=== PATIENT | female | born 1955 | race Caucasian/White ===

== ENCOUNTER 2016-12-26 21:37 | Emergency (ER) | payer MEDICAID ==
[~2016-12-26] VITALS: Ht 167.6 cm; Wt 63.2 kg
[2016-12-26 21:52] VITALS: BP 182/92
== END 2016-12-27 | disposition home or self-care (01) ==
LOC: ED 22:16
DX: I10 Essential (primary) hypertension (principal)
CPT/HCPCS: 99283

== ENCOUNTER 2019-07-13 14:14 | Inpatient (IN) | payer MEDICAID, OTHER ==
[~2019-07-13] VITALS: Ht 167.6 cm; Wt 57.7 kg
--- NOTE | 2019-07-13 14:59 | NUR ---
REPORT FROM ANA BRAND.
[2019-07-13] MEDS ORDERED: PHARMACOKINETIC CONSULTATION MC ONE (15:00)
[2019-07-13] MEDS ORDERED: AMPICILLIN/SULBACTAM 3 GM in SODIUM CHLORIDE 0.9% 100 ML IV ONE (15:00)
[2019-07-13] MEDS ORDERED: VANCOMYCIN 1,400 MG in SODIUM CHLORIDE 0.9% 250 ML IV ONE (15:00)
[2019-07-13] MEDS ORDERED: SODIUM CHLORIDE FLUSH 10ML SYR IVF ONE (15:00)
[2019-07-13] MEDS ORDERED: VANCOMYCIN PER PHARMACY MC PRN ×2 (15:00→16:00)
[2019-07-13 15:17] LABS: BASOPHILS # (AUTO) 0.02 x10^3/uL (0-0.1); BASOPHILS % (AUTO) 0 % (0-1); EOSINOPHILS # (AUTO) 0.04 x10^3/uL (0-0.4); EOSINOPHILS % (AUTO) 1 % (1-7); LYMPHOCYTES # (AUTO) 0.66 x10^3/uL (1-3.4); LYMPHOCYTES % (AUTO) 10 % (22-44); MD NO; MEAN CORPUSCULAR HEMOGLOBIN 27.5 pg (27.0-34.8); MEAN CORPUSCULAR HGB CONC 32.3 g/dL (32.4-35.8); MEAN CORPUSCULAR VOLUME 84.9 fL (80-100); MEAN PLATELET VOLUME 8.5 fL (7.4-10.4); MONOCYTES # (AUTO) 0.85 x10^3/uL (0.2-0.8); MONOCYTES % (AUTO) 13 % (2-9); NEUTROPHILS % (AUTO) 75 % (42-75); PLATELET COUNT 274 x10^3/uL (130-400); RED BLOOD COUNT 4.12 x10^6/uL (3.82-5.3); RED CELL DISTRIBUTION WIDTH 14.6 % (9.6-15.2)
[2019-07-13 15:23] LABS: ALBUMIN 2.7 g/dL (3.4-5.0); ANION GAP 8 mmol/L (5-15); CALCIUM 8.1 mg/dL (8.5-10.1); CHLORIDE 98 mmol/L (98-107); CREATININE 0.96 mg/dL (0.55-1.02)
[2019-07-13] MEDS ORDERED: SODIUM CHLORIDE 0.9% 1,000ML IVBOLUS ONE (15:30)
--- NOTE | 2019-07-13 15:39 | NUR ---
FLUIDS INFUSING, VANCO INFUSING. BLOOD CULTURES DRAWN. PT HAS NO FURTHER NEEDS AT THIS TIME
[2019-07-13] MEDS: SODIUM CHLORIDE 0.9% 1,000 ML IV SCH ×2 (15:59→21:24)
[2019-07-13] MEDS ORDERED: DOCUSATE 100 MG CAPSULE PO PRN (16:00)
[2019-07-13] MEDS ORDERED: PERMETHRIN CRM 5%, 60GM TP ONE (16:00)
[2019-07-13] MEDS ORDERED: ONDANSETRON ODT 4 MG PO PRN (16:00)
[2019-07-13] MEDS ORDERED: POTASSIUM CHLORIDE 20 MEQ TAB.ER.PRT PO ONE (16:00)
[2019-07-13] MEDS ORDERED: KETOROLAC 30 MG/1 ML IV PRN (16:00)
[2019-07-13] MEDS ORDERED: SODIUM CHLORIDE FLUSH 10ML SYR IVF PRN (16:00)
[2019-07-13] MEDS ORDERED: HYDROcodone/APAP 5/325 TABLET PO PRN (16:00)
[2019-07-13] MEDS ORDERED: morphine SULFATE 10 MG/ML, 1ML IVPush PRN (16:00)
[2019-07-13] MEDS ORDERED: ACETAMINOPHEN 325 MG TABLET PO PRN (16:00)
[2019-07-13] MEDS ORDERED: ONDANSETRON 2MG/ML, 2ML IVPush PRN (16:00)
--- NOTE | 2019-07-13 16:03 | NUR ---
HOSPITALIST AT BEDSIDE.
[2019-07-13] MEDS ORDERED: ENOXAPARIN 40 MG/0.4 ML ONE (16:20)
[2019-07-13] MEDS ORDERED: POTASSIUM CHLORIDE 20 MEQ TAB.ER.PRT ONE (16:20)
[2019-07-13] MEDS: ENOXAPARIN 40 MG/0.4 ML SQ SCH (16:28)
[2019-07-13] MEDS ORDERED: PHARMACOKINETIC MONITORING MC PRN (16:30)
--- NOTE | 2019-07-13 16:34 | NUR ---
MEDS PER MAR. PLACED ON 2 LNC. AWAITING BED FOR ADMIT, AWARE AND AGREES.
--- NOTE | 2019-07-13 16:40 | NUR ---
PT COUGHING, DENIES SMOKING HX, RA SAT 86 WHEN SLEEPING, GARRETT MOONEY MADE AWARE CXR ORDERED.
[2019-07-13] MEDS ORDERED: GUAIFENESIN 200 MG TABLET PO PRN (17:00)
--- NOTE | 2019-07-13 17:05 | NUR ---
REPORT TO SELENA BRAND.
[2019-07-13 20:45] VITALS: BP 136/74
[2019-07-13] MEDS: AMPICILLIN/SULBACTAM 3 GM in SODIUM CHLORIDE 0.9% 100 ML IV SCH ×2 (21:24→22:00)
[2019-07-14 00:31] VITALS: BP 134/70
[2019-07-14] MEDS: AMPICILLIN/SULBACTAM 3 GM in SODIUM CHLORIDE 0.9% 100 ML IV SCH ×4 (04:10→21:57)
[2019-07-14 06:07] LABS: ANION GAP 3 mmol/L (5-15); BASOPHILS # (AUTO) 0.03 x10^3/uL (0-0.1); BASOPHILS % (AUTO) 1 % (0-1); CALCIUM 7.7 mg/dL (8.5-10.1); CHLORIDE 106 mmol/L (98-107); EOSINOPHILS # (AUTO) 0.04 x10^3/uL (0-0.4); EOSINOPHILS % (AUTO) 1 % (1-7); LYMPHOCYTES # (AUTO) 0.93 x10^3/uL (1-3.4); LYMPHOCYTES % (AUTO) 19 % (22-44); MD NO; MEAN CORPUSCULAR HEMOGLOBIN 27.7 pg (27.0-34.8); MEAN CORPUSCULAR HGB CONC 32.4 g/dL (32.4-35.8); MEAN CORPUSCULAR VOLUME 85.3 fL (80-100); MEAN PLATELET VOLUME 8.3 fL (7.4-10.4); MONOCYTES # (AUTO) 0.68 x10^3/uL (0.2-0.8); MONOCYTES % (AUTO) 14 % (2-9); NEUTROPHILS # (AUTO) 3.17 x10^3/uL (1.8-6.8); NEUTROPHILS % (AUTO) 65 % (42-75); PLATELET COUNT 223 x10^3/uL (130-400); RED BLOOD COUNT 3.48 x10^6/uL (3.82-5.3); RED CELL DISTRIBUTION WIDTH 14.3 % (9.6-15.2)
[2019-07-14 06:10] LABS: CREATININE 0.63 mg/dL (0.55-1.02)
[2019-07-14 07:05] VITALS: BP 119/67
[2019-07-14 12:21] VITALS: BP 123/68
[2019-07-14] MEDS ORDERED: GADOTERATE 7.5 MMOL/15 ML SYR ONE (14:45)
[2019-07-14] MEDS: VANCOMYCIN 1,300 MG in SODIUM CHLORIDE 0.9% 250 ML IV SCH (15:13)
[2019-07-14] MEDS: SODIUM CHLORIDE 0.9% 1,000 ML IV SCH (16:49)
[2019-07-14] MEDS: ENOXAPARIN 40 MG/0.4 ML SQ SCH (16:49)
[2019-07-14 19:27] VITALS: BP 130/65
[2019-07-15 02:23] VITALS: BP 150/81
[2019-07-15] MEDS: SODIUM CHLORIDE 0.9% 1,000 ML IV SCH (04:20)
[2019-07-15] MEDS: AMPICILLIN/SULBACTAM 3 GM in SODIUM CHLORIDE 0.9% 100 ML IV SCH ×3 (04:20→17:55)
[2019-07-15 06:48] VITALS: BP 171/83
[2019-07-15 09:40] LABS: ANION GAP 7 mmol/L (5-15); CALCIUM 7.9 mg/dL (8.5-10.1); CHLORIDE 104 mmol/L (98-107); CREATININE 0.61 mg/dL (0.55-1.02)
[2019-07-15 10:03] LABS: BASOPHILS # (AUTO) 0.05 x10^3/uL (0-0.1); BASOPHILS % (AUTO) 1 % (0-1); EOSINOPHILS # (AUTO) 0.09 x10^3/uL (0-0.4); EOSINOPHILS % (AUTO) 2 % (1-7); LYMPHOCYTES # (AUTO) 1.06 x10^3/uL (1-3.4); LYMPHOCYTES % (AUTO) 22 % (22-44); MD NO; MEAN CORPUSCULAR HEMOGLOBIN 27.7 pg (27.0-34.8); MEAN CORPUSCULAR HGB CONC 32.7 g/dL (32.4-35.8); MEAN CORPUSCULAR VOLUME 84.7 fL (80-100); MEAN PLATELET VOLUME 7.8 fL (7.4-10.4); MONOCYTES # (AUTO) 0.34 x10^3/uL (0.2-0.8); MONOCYTES % (AUTO) 7 % (2-9); NEUTROPHILS # (AUTO) 3.27 x10^3/uL (1.8-6.8); NEUTROPHILS % (AUTO) 68 % (42-75); PLATELET COUNT 262 x10^3/uL (130-400); RED BLOOD COUNT 4.15 x10^6/uL (3.82-5.3); RED CELL DISTRIBUTION WIDTH 14.7 % (9.6-15.2)
[2019-07-15 10:39] LABS: HCT (SEDRATE) 35.1 % (34.6-47.8)
[2019-07-15 12:39] VITALS: BP 153/76
[2019-07-15] MEDS ORDERED: LORazepam 1MG TABLET PO PRN (13:30)
[2019-07-15] MEDS ORDERED: LORazepam 2 MG/ML, 1ML ONE (15:24)
[2019-07-15] MEDS ORDERED: LORazepam 2 MG/ML, 1ML IVPush PRN (15:30)
[2019-07-15] MEDS: VANCOMYCIN 1,300 MG in SODIUM CHLORIDE 0.9% 250 ML IV SCH (15:32)
[2019-07-15] MEDS: ENOXAPARIN 40 MG/0.4 ML SQ SCH (17:55)
[2019-07-15 19:28] VITALS: BP 173/80
[2019-07-15] MEDS ORDERED: PIPERONYL BUTOXIDE/PYRETHRINS SHAMPOO TP SCH (23:30)
[2019-07-15] MEDS ORDERED: PERMETHRIN CRM 5%, 60GM TP SCH (23:30)
[2019-07-16 04:22] VITALS: BP 175/87
[2019-07-16] MEDS: AMPICILLIN/SULBACTAM 3 GM in SODIUM CHLORIDE 0.9% 100 ML IV SCH ×4 (05:58→18:11)
[2019-07-16 07:00] VITALS: BP 179/91
[2019-07-16] MEDS: CHLORTHALIDONE 25 MG TABLET PO SCH (09:00)
[2019-07-16 12:12] VITALS: BP 165/88
[2019-07-16] MEDS: ENOXAPARIN 40 MG/0.4 ML SQ SCH (16:00)
[2019-07-16 20:27] VITALS: BP 167/90
[2019-07-17 00:16] VITALS: BP 169/82
[2019-07-17] MEDS: AMPICILLIN/SULBACTAM 3 GM in SODIUM CHLORIDE 0.9% 100 ML IV SCH ×4 (00:21→17:38)
[2019-07-17 08:49] VITALS: BP 186/92
[2019-07-17] MEDS: CHLORTHALIDONE 25 MG TABLET PO SCH ×2 (09:00→10:54)
[2019-07-17 13:00] VITALS: BP 188/90
[2019-07-17] MEDS: ENOXAPARIN 40 MG/0.4 ML SQ SCH (17:37)
[2019-07-17 20:30] VITALS: BP 166/79
[2019-07-18] MEDS: AMPICILLIN/SULBACTAM 3 GM in SODIUM CHLORIDE 0.9% 100 ML IV SCH ×5 (01:11→23:38)
[2019-07-18 02:00] VITALS: BP 166/79
[2019-07-18 07:27] VITALS: BP 185/93
[2019-07-18] MEDS: CHLORTHALIDONE 25 MG TABLET PO SCH (08:52)
[2019-07-18 14:05] VITALS: BP 179/90
[2019-07-18] MEDS ORDERED: hydrALAzine 20 MG/ML, 1ML IV PRN (15:30)
[2019-07-18] MEDS: ENOXAPARIN 40 MG/0.4 ML SQ SCH (16:00)
[2019-07-18 19:22] VITALS: BP 166/82
[2019-07-18 19:48] VITALS: BP 163/79
[2019-07-19 00:08] VITALS: BP 166/89
[2019-07-19] MEDS: AMPICILLIN/SULBACTAM 3 GM in SODIUM CHLORIDE 0.9% 100 ML IV SCH ×4 (05:28→23:57)
[2019-07-19 07:39] VITALS: BP 174/88
[2019-07-19] MEDS: AMLODIPINE 5 MG TABLET PO SCH (08:50)
[2019-07-19] MEDS ORDERED: CHLORTHALIDONE 25 MG TABLET PO SCH (09:00)
[2019-07-19] MEDS: ENOXAPARIN 40 MG/0.4 ML SQ SCH (14:50)
[2019-07-19 14:51] VITALS: BP 175/83
[2019-07-19 18:55] VITALS: BP 157/77
[2019-07-19] MEDS ORDERED: HALOPERIDOL 1 MG TABLET PO SCH (21:00)
[2019-07-19] MEDS: HALOPERIDOL 0.5 MG TABLET PO SCH (21:00)
[2019-07-19] MEDS ORDERED: HALOPERIDOL 5 MG/ML IV SCH (21:00)
[2019-07-20 00:21] VITALS: BP 155/89
[2019-07-20] MEDS: AMPICILLIN/SULBACTAM 3 GM in SODIUM CHLORIDE 0.9% 100 ML IV SCH ×3 (05:44→18:05)
[2019-07-20 07:29] VITALS: BP 168/71
[2019-07-20] MEDS: HALOPERIDOL 0.5 MG TABLET PO SCH ×2 (08:57→21:00)
[2019-07-20] MEDS: AMLODIPINE 5 MG TABLET PO SCH (08:57)
[2019-07-20] MEDS ORDERED: HALOPERIDOL 0.5 MG TABLET PO SCH (09:00)
[2019-07-20 13:30] VITALS: BP 164/79
[2019-07-20] MEDS: ENOXAPARIN 40 MG/0.4 ML SQ SCH (15:06)
[2019-07-20] MEDS: LISINOPRIL 20 MG TABLET PO SCH (16:00)
[2019-07-21] MEDS: AMPICILLIN/SULBACTAM 3 GM in SODIUM CHLORIDE 0.9% 100 ML IV SCH ×4 (00:18→21:36)
[2019-07-21 01:05] VITALS: BP 145/74
[2019-07-21 06:56] VITALS: BP 145/87
[2019-07-21] MEDS: LISINOPRIL 20 MG TABLET PO SCH (09:00)
[2019-07-21] MEDS: AMLODIPINE 5 MG TABLET PO SCH (09:00)
[2019-07-21] MEDS: HALOPERIDOL 0.5 MG TABLET PO SCH ×2 (09:00→21:00)
[2019-07-21 14:20] VITALS: BP 145/67
[2019-07-21] MEDS: ENOXAPARIN 40 MG/0.4 ML SQ SCH (16:00)
[2019-07-21 19:02] VITALS: BP 134/71
[2019-07-22 01:02] VITALS: BP 150/84
[2019-07-22] MEDS: AMPICILLIN/SULBACTAM 3 GM in SODIUM CHLORIDE 0.9% 100 ML IV SCH ×4 (02:24→20:05)
[2019-07-22] MEDS: HALOPERIDOL 0.5 MG TABLET PO SCH ×2 (08:05→20:06)
[2019-07-22 08:29] VITALS: BP 149/81
[2019-07-22] MEDS: LISINOPRIL 20 MG TABLET PO SCH (09:00)
[2019-07-22] MEDS: AMLODIPINE 5 MG TABLET PO SCH (09:00)
[2019-07-22 12:13] VITALS: BP 148/78
[2019-07-22] MEDS: ENOXAPARIN 40 MG/0.4 ML SQ SCH (14:22)
[2019-07-22 19:12] VITALS: BP 142/76
[2019-07-23 00:51] VITALS: BP 127/73
[2019-07-23] MEDS: AMPICILLIN/SULBACTAM 3 GM in SODIUM CHLORIDE 0.9% 100 ML IV SCH ×2 (02:38→08:05)
[2019-07-23] MEDS: AMLODIPINE 5 MG TABLET PO SCH (06:51)
[2019-07-23] MEDS: HALOPERIDOL 0.5 MG TABLET PO SCH (06:51)
[2019-07-23] MEDS: LISINOPRIL 20 MG TABLET PO SCH (06:51)
[2019-07-23 08:40] VITALS: BP 148/88
== END 2019-07-23 12:27 | disposition home or self-care (01) | DRG 603 ==
LOC: ED 15:32 → EDIP 15:48 → 3N 15:52
PROVIDERS: ADMIT Hospitalist; ATTEND Family Medicine
DX: L03.116 Cellulitis of left lower limb (principal); E87.1 Hypo-osmolality and hyponatremia; J98.11 Atelectasis; R26.2 Difficulty in walking, not elsewhere classified; I10 Essential (primary) hypertension; E87.6 Hypokalemia; B86 Scabies; Z66 Do not resuscitate; D64.9 Anemia, unspecified; B95.0 Streptococcus, group A, as the cause of diseases classified elsewhere; W01.0XXA Fall on same level from slipping, tripping and stumbling without subsequent striking against object, initial encounter; Y93.01 Activity, walking, marching and hiking; H54.8 Legal blindness, as defined in USA; S81.012A Laceration without foreign body, left knee, initial encounter; B95.61 Methicillin susceptible Staphylococcus aureus infection as the cause of diseases classified elsewhere; Y92.89 Other specified places as the place of occurrence of the external cause; Y99.8 Other external cause status; Z59.0 Homelessness; Z82.5 Family history of asthma and other chronic lower respiratory diseases; Z79.899 Other long term (current) drug therapy
CPT/HCPCS: 36415; 71045; 80048; 82040; 83605; 85025; 85651; 86140; 87040; 87070; 87077; 87147; 87186; 87205; 93970; 99285; G0378; J0295; J1650; J3370; A9575; J2060; J7030; J7050

== ENCOUNTER 2020-06-02 15:26 | Emergency (ER) | payer SELFPAY ==
[~2020-06-02] VITALS: Ht 167.6 cm; Wt 66.0 kg
[~2020-06-02 15:26] MED LIST: AMLO-150 PO; CEPH-376 PO
--- NOTE | 2020-06-02 16:18 | NUR ---
PT RELEASED FROM [place] TODAY AND WAS BROUGHT TO [facility] FOR WOUND TO RIGHT TAYLOR. PT UNSURE OF HOW SHE GOT THE WOUND. PT STATES IT HAS BEEN THERE FOR 2-3 MONTHS. PT DENIES PAIN AT THIS TIME.
[2020-06-02 16:19] VITALS: BP 157/98
--- NOTE | 2020-06-02 16:40 | NUR ---
PT REC'VD DISCHARGE INSTRUCTIONS AND EDUCATION. PT HAD NO FURTHER QUESTIONS. PT AMBULATED TO DC AREA, STEADY GAIT.
== END 2020-06-02 16:56 | disposition home or self-care (01) ==
LOC: ED 16:00
DX: S81.831D Puncture wound without foreign body, right lower leg, subsequent encounter (principal); I10 Essential (primary) hypertension; X58.XXXD Exposure to other specified factors, subsequent encounter
CPT/HCPCS: 99283

== ENCOUNTER 2020-09-16 09:29 | Inpatient (IN) | payer SELFPAY ==
[~2020-09-16] VITALS: Ht 167.6 cm; Wt 58.2 kg
--- NOTE | 2020-09-16 09:29 | NUR ---
pt sent to shower for decon with EDT prior to triage, report taken from ems by kiln charger
[2020-09-16] MEDS ORDERED: PERMETHRIN CRM 5%, 60GM ONE ×2 (09:31→09:41)
[2020-09-16] MEDS ORDERED: PLEASE ENTER HEIGHT AND WEIGHT MC SCH (10:00)
[2020-09-16] MEDS ORDERED: PIPERONYL BUTOXIDE/PYRETHRINS 4OZ. SHAMPOO TP SCH (10:00)
--- NOTE | 2020-09-16 10:02 | NUR ---
pt remains in shower for decon
--- NOTE | 2020-09-16 10:23 | NUR ---
pt to room 13 from shower with EDT
[2020-09-16] MEDS ORDERED: SODIUM CHLORIDE FLUSH 10ML SYR IVF ONE (10:30)
[2020-09-16] MEDS ORDERED: VANCOMYCIN PER PHARMACY MC ONE (11:30)
[2020-09-16 11:31] LABS: MEAN CORPUSCULAR HEMOGLOBIN 26.9 pg (27.0-34.8); MEAN CORPUSCULAR HGB CONC 32.9 g/dL (32.4-35.8); MEAN PLATELET VOLUME 7.5 fL (7.4-10.4); PLATELET COUNT 565 x10^3/uL (130-400); RED BLOOD COUNT 3.71 x10^6/uL (3.82-5.3)
[2020-09-16 11:42] LABS: ALANINE AMINOTRANSFERASE 51 U/L (12-78); ALBUMIN 2.2 g/dL (3.4-5.0); ANION GAP 13 mmol/L (5-15); CHLORIDE 105 mmol/L (98-107); CREATININE 2.28 mg/dL (0.55-1.02)
[2020-09-16 11:44] LABS: ALKALINE PHOSPHATASE 133 U/L (45-117); BILIRUBIN,TOTAL 0.3 mg/dL (0.2-1.0); CREATINE KINASE, TOTAL 616 U/L (26-192); TOTAL PROTEIN 6.8 g/dL (6.4-8.2)
--- NOTE | 2020-09-16 11:45 | NUR ---
PT HAS EXTREMELY POOR VASCULARTURE, PIV ATTEMPTED X 1, EJ ATTEMPTED X 1, WITHOUT SUCCESS. MD NOTIFIED, ORDER FOR PICC PLACED. PT IS A&OX4, RESPS EVEN AND UNLABORED. NSR ON SENIOR HYDROGEOLOGIST WITH NO ECTOPY. MD NOTIFIED PT HYPOTHERMIC AT 93.5, PT WRAPPED IN WARM BLANKETS, WARMER IN PLACE. ALL MONITORS IN PLACE. CALL LIGHT IN REACH.
[2020-09-16 11:46] LABS: MD YES
[2020-09-16 11:48] LABS: BAND#(MANUAL) 1.67 x10^3/uL; BANDS%(MANUAL) 8 % (0-7); LYMPH#(MANUAL) 0.63 x10^3/uL (1-3.4); LYMPHS% (MANUAL) 3 % (22-44); METAMYELOCYTES# (MANUAL) 0.21 x10^3/uL (0-0); METAMYELOCYTES% (MANUAL) 1 % (0-1); MONOS#(MANUAL) 0.21 x10^3/uL (0.3-2.7); MONOS% (MANUAL) 1 % (2-9); SEG#(MANUAL) 18.18 x10^3/uL (1.8-6.8); SEGS% (MANUAL) 87 % (42-75)
[2020-09-16 11:49] LABS: <PLATELET ESTIMATE> INCREASED; <PLT MORPHOLOGY> NORMAL PLT MORPH; ECHINOCYTES 1+; POLYCHROMASIA 1+
[2020-09-16 11:50] LABS: PMNS WITH VACUOLES 1+; TOXIC GRAN 1+
--- NOTE | 2020-09-16 12:45 | NUR ---
IR called, IR RN states they are unable to place PICC for at least 2 hrs d/t procedure in progress. MD Alves notified. Task RN to attempt US PIV placement.
[2020-09-16] MEDS ORDERED: PIPERACILLIN/TAZO/PMX 4.5GM 100 ML IVPB ONE (13:00)
--- NOTE | 2020-09-16 13:09 | NUR ---
task RN Bill at bedside for PIV placement with US. straight cath urine obtained with sterile technique. pt is a&o, resps even and unlabored, nsr on solar energy technician, no ectopy noted. pt denies pain.
[2020-09-16 13:29] LABS: MICROSCOPIC AUTO
[2020-09-16] MEDS ORDERED: SODIUM CHLORIDE 0.9% 1,000 ML IV ONE (13:30)
[2020-09-16] MEDS ORDERED: SODIUM CHLORIDE 0.9% 1,000ML IVBOLUS ONE (13:30)
[2020-09-16] MEDS ORDERED: SODIUM CHLORIDE FLUSH 10ML SYR IVF PRN (14:00)
[2020-09-16] MEDS ORDERED: VANCOMYCIN 1,500 MG in SODIUM CHLORIDE 0.9% 250 ML IV ONE (14:00)
--- NOTE | 2020-09-16 14:15 | NUR ---
MD ALVAREZ NOTIFIED PT REMAINS HYPOTHERMIC AT TEMP 93.3, SKIN FEELS NORMOTHERMIC. PT A&O, RESPS EVEN AND UNLABORED, NSR ON METALIZING SUPERVISOR WITH NO ECTOPY. BEAR HUGGER WARMING BLANKET IN PLACE. PIV PLACED, ZOSYN INFUSING VIA IV PUMP AFTER BLOOD CX DRAWN X 2. IR AWARE PT STILL NEEDIGN PICC LINE, STATE THEY WILL BE COLLECTING PT FROM ED/FLOOR THIS AFTERNOON, UNKNOWN TIME.
--- NOTE | 2020-09-16 14:17 | NUR ---
REPORT GIVEN TO MEDICAL RN TED.
[2020-09-16] MEDS ORDERED: hydrALAzine 20 MG/ML, 1ML IVPush PRN (18:30)
[2020-09-16] MEDS ORDERED: SODIUM CHLORIDE 0.9% 1,000 ML IV SCH (18:30)
[2020-09-16] MEDS ORDERED: HYDROcodone/APAP 5/325 TABLET PO PRN (18:30)
[2020-09-16] MEDS ORDERED: AMPICILLIN/SULBACTAM 3 GM in SODIUM CHLORIDE 0.9% 100 ML IV SCH (18:30)
[2020-09-16] MEDS ORDERED: GABAPENTIN 300 MG CAPSULE PO PRN (18:30)
[2020-09-16] MEDS ORDERED: BISACODYL 10 MG SUPP PR PRN (18:30)
[2020-09-16] MEDS ORDERED: ONDANSETRON ODT 4 MG PO PRN (18:30)
[2020-09-16] MEDS ORDERED: VANCOMYCIN PER PHARMACY MC PRN (18:30)
[2020-09-16] MEDS ORDERED: ONDANSETRON 2MG/ML, 2ML IVPush PRN (18:30)
[2020-09-16] MEDS: HEPARIN 5,000 UNITS/ML, 1ML SQ SCH (18:40)
[2020-09-16] MEDS ORDERED: PHARMACOKINETIC MONITORING MC PRN (19:00)
[2020-09-16 19:08] LABS: HCT (SEDRATE) 25.6 % (34.6-47.8)
[2020-09-16 19:39] VITALS: BP 100/58
[2020-09-16] MEDS: SENNA/DOCUSATE TABLET PO SCH ×2 (21:00→22:23)
[2020-09-16] MEDS: SODIUM CHLORIDE 0.9% 1,000 ML IV SCH (21:20)
[2020-09-17 01:30] VITALS: BP 111/65
[2020-09-17] MEDS: HEPARIN 5,000 UNITS/ML, 1ML SQ SCH ×3 (03:20→18:38)
[2020-09-17 03:47] LABS: BASOPHILS % (AUTO) 0 % (0-1); EOSINOPHILS % (AUTO) 0 % (1-7); LYMPHOCYTES % (AUTO) 7 % (22-44); MEAN CORPUSCULAR HEMOGLOBIN 26.7 pg (27.0-34.8); MEAN CORPUSCULAR HGB CONC 32.9 g/dL (32.4-35.8); MEAN PLATELET VOLUME 6.8 fL (7.4-10.4); MONOCYTES % (AUTO) 5 % (2-9); NEUTROPHILS % (AUTO) 87 % (42-75); PLATELET COUNT 366 x10^3/uL (130-400); RED CELL DISTRIBUTION WIDTH 14.6 % (9.6-15.2)
[2020-09-17 03:56] LABS: MD NO
[2020-09-17 04:00] LABS: ALANINE AMINOTRANSFERASE 45 U/L (12-78); ALBUMIN 1.7 g/dL (3.4-5.0); ANION GAP 11 mmol/L (5-15); CALCIUM 7.4 mg/dL (8.5-10.1); CHLORIDE 109 mmol/L (98-107); CREATININE 1.63 mg/dL (0.55-1.02)
[2020-09-17 04:11] LABS: ALKALINE PHOSPHATASE 110 U/L (45-117); BILIRUBIN,TOTAL 0.3 mg/dL (0.2-1.0); CREATINE KINASE, TOTAL 689 U/L (26-192); TOTAL PROTEIN 5.5 g/dL (6.4-8.2)
[2020-09-17] MEDS: AMPICILLIN/SULBACTAM 3 GM in SODIUM CHLORIDE 0.9% 100 ML IV SCH ×2 (06:31→18:38)
[2020-09-17 08:14] VITALS: BP 114/67
[2020-09-17] MEDS: POLYETHYLENE GLYCOL 17 GM PACKET PO SCH (11:18)
[2020-09-17] MEDS: SODIUM CHLORIDE 0.9% 1,000 ML IV SCH ×2 (11:18→22:45)
[2020-09-17] MEDS: SENNA/DOCUSATE TABLET PO SCH ×3 (11:18→22:44)
[2020-09-17 12:23] VITALS: BP 130/75
[2020-09-17 19:06] VITALS: BP 99/51
[2020-09-18] VITALS (7 sets, daily range): BP systolic 100–121; BP diastolic 53–68
[2020-09-18] MEDS: HEPARIN 5,000 UNITS/ML, 1ML SQ SCH ×4 (03:33→19:59)
[2020-09-18 04:27] LABS: ANION GAP 7 mmol/L (5-15); CALCIUM 7.2 mg/dL (8.5-10.1); CHLORIDE 110 mmol/L (98-107); CREATININE 0.65 mg/dL (0.55-1.02)
[2020-09-18 04:28] LABS: VANCOMYCIN,RANDOM 7.6 mcg/mL
[2020-09-18 05:32] LABS: BASOPHILS % (AUTO) 0 % (0-1); EOSINOPHILS % (AUTO) 1 % (1-7); LYMPHOCYTES % (AUTO) 9 % (22-44); MEAN CORPUSCULAR HEMOGLOBIN 26.7 pg (27.0-34.8); MEAN CORPUSCULAR HGB CONC 32.8 g/dL (32.4-35.8); MEAN PLATELET VOLUME 6.9 fL (7.4-10.4); MONOCYTES % (AUTO) 6 % (2-9); NEUTROPHILS % (AUTO) 84 % (42-75); PLATELET COUNT 278 x10^3/uL (130-400); RED CELL DISTRIBUTION WIDTH 14.6 % (9.6-15.2)
[2020-09-18 06:02] LABS: MD NO
[2020-09-18] MEDS: AMPICILLIN/SULBACTAM 3 GM in SODIUM CHLORIDE 0.9% 100 ML IV SCH ×2 (06:25→21:47)
[2020-09-18] MEDS: SENNA/DOCUSATE TABLET PO SCH ×2 (09:00→19:59)
[2020-09-18] MEDS: VANCOMYCIN 1,100 MG in SODIUM CHLORIDE 0.9% 250 ML IV SCH (11:29)
[2020-09-18] MEDS: POLYETHYLENE GLYCOL 17 GM PACKET PO SCH (11:30)
[2020-09-18] MEDS: SODIUM CHLORIDE 0.9% 1,000 ML IV SCH (21:47)
[2020-09-19 01:20] VITALS: BP 142/87
[2020-09-19 02:05] LABS: OCCULT BLOOD NEGATIVE (NEGATIVE)
[2020-09-19] MEDS: HEPARIN 5,000 UNITS/ML, 1ML SQ SCH (02:05)
[2020-09-19] MEDS: VANCOMYCIN 1,100 MG in SODIUM CHLORIDE 0.9% 250 ML IV SCH (05:17)
[2020-09-19 07:56] VITALS: BP 107/68
[2020-09-19] MEDS: POLYETHYLENE GLYCOL 17 GM PACKET PO SCH (08:02)
[2020-09-19] MEDS: SENNA/DOCUSATE TABLET PO SCH ×3 (08:02→19:50)
[2020-09-19 08:45] LABS: BASOPHILS % (AUTO) 0 % (0-1); EOSINOPHILS % (AUTO) 5 % (1-7); LYMPHOCYTES % (AUTO) 13 % (22-44); MEAN CORPUSCULAR HEMOGLOBIN 26.8 pg (27.0-34.8); MEAN CORPUSCULAR HGB CONC 32.3 g/dL (32.4-35.8); MEAN PLATELET VOLUME 6.8 fL (7.4-10.4); MONOCYTES % (AUTO) 6 % (2-9); NEUTROPHILS % (AUTO) 76 % (42-75); PLATELET COUNT 289 x10^3/uL (130-400); RED BLOOD COUNT 3.62 x10^6/uL (3.82-5.3); RED CELL DISTRIBUTION WIDTH 15.5 % (9.6-15.2)
[2020-09-19 08:47] LABS: ALBUMIN 1.7 g/dL (3.4-5.0); ANION GAP 6 mmol/L (5-15); CALCIUM 7.4 mg/dL (8.5-10.1); CHLORIDE 108 mmol/L (98-107); CREATININE 0.54 mg/dL (0.55-1.02)
[2020-09-19 08:56] LABS: MD NO
[2020-09-19] MEDS ORDERED: LORazepam 2 MG/ML, 1ML IVPush ONE (09:30)
[2020-09-19] MEDS: AMPICILLIN/SULBACTAM 3 GM in SODIUM CHLORIDE 0.9% 100 ML IV SCH ×4 (10:52→23:58)
[2020-09-19] MEDS: SODIUM CHLORIDE 0.9% 1,000 ML IV SCH ×2 (12:08→19:48)
[2020-09-19 13:50] VITALS: BP 95/58
[2020-09-19 19:53] VITALS: BP 129/66
[2020-09-20] MEDS: VANCOMYCIN 1,100 MG in SODIUM CHLORIDE 0.9% 250 ML IV SCH ×2 (00:55→18:43)
[2020-09-20 02:53] VITALS: BP 108/74
[2020-09-20] MEDS: AMPICILLIN/SULBACTAM 3 GM in SODIUM CHLORIDE 0.9% 100 ML IV SCH ×4 (06:08→23:09)
[2020-09-20 07:04] LABS: MEAN CORPUSCULAR HEMOGLOBIN 27.1 pg (27.0-34.8); MEAN CORPUSCULAR HGB CONC 32.6 g/dL (32.4-35.8); MEAN PLATELET VOLUME 6.8 fL (7.4-10.4); PLATELET COUNT 340 x10^3/uL (130-400); RED BLOOD COUNT 3.09 x10^6/uL (3.82-5.3); RED CELL DISTRIBUTION WIDTH 15.4 % (9.6-15.2)
[2020-09-20 07:07] VITALS: BP 117/54
[2020-09-20 07:12] LABS: ANION GAP 4 mmol/L (5-15); CALCIUM 7.4 mg/dL (8.5-10.1); CHLORIDE 109 mmol/L (98-107); CREATININE 0.48 mg/dL (0.55-1.02)
[2020-09-20 07:25] LABS: MD YES
[2020-09-20 07:27] LABS: ANISOCYTOSIS 1+; BAND#(MANUAL) 0.28 x10^3/uL; BANDS%(MANUAL) 2 % (0-7); EOS#(MANUAL) 1.96 x10^3/uL (0.0-0.4); EOS% (MANUAL) 14 % (1-7); LYMPH#(MANUAL) 1.96 x10^3/uL (1-3.4); LYMPHS% (MANUAL) 14 % (22-44); METAMYELOCYTES# (MANUAL) 0.14 x10^3/uL (0-0); METAMYELOCYTES% (MANUAL) 1 % (0-1); MONOS#(MANUAL) 0.42 x10^3/uL (0.3-2.7); MONOS% (MANUAL) 3 % (2-9); OVALOCYTES 1+; POLYCHROMASIA 1+; SEG#(MANUAL) 9.24 x10^3/uL (1.8-6.8); SEGS% (MANUAL) 66 % (42-75)
[2020-09-20 07:28] LABS: <PLATELET ESTIMATE> ADEQUATE; <PLT MORPHOLOGY> NORMAL PLT MORPH
[2020-09-20] MEDS ORDERED: ACETAMINOPHEN 325 MG TABLET PO PRN (08:00)
[2020-09-20] MEDS: POLYETHYLENE GLYCOL 17 GM PACKET PO SCH (08:23)
[2020-09-20] MEDS: HEPARIN 5,000 UNITS/ML, 1ML SQ SCH ×2 (08:23→20:02)
[2020-09-20 13:37] VITALS: BP 139/67
[2020-09-20] MEDS: SODIUM CHLORIDE 0.9% 1,000 ML IV SCH (17:01)
[2020-09-20 19:51] VITALS: BP 134/72
[2020-09-20] MEDS: SENNA/DOCUSATE TABLET PO SCH (20:03)
[2020-09-21 02:30] VITALS: BP 144/80
[2020-09-21] MEDS: AMPICILLIN/SULBACTAM 3 GM in SODIUM CHLORIDE 0.9% 100 ML IV SCH ×4 (05:07→23:29)
[2020-09-21] MEDS: VANCOMYCIN PMX 1GM/200ML 200 ML IV SCH ×2 (05:59→18:12)
[2020-09-21 06:10] LABS: HCT (SEDRATE) 23.7 % (34.6-47.8)
[2020-09-21 06:16] LABS: MEAN CORPUSCULAR HEMOGLOBIN 27.3 pg (27.0-34.8); MEAN CORPUSCULAR HGB CONC 32.7 g/dL (32.4-35.8); MEAN PLATELET VOLUME 6.8 fL (7.4-10.4); PLATELET COUNT 315 x10^3/uL (130-400); RED BLOOD COUNT 2.94 x10^6/uL (3.82-5.3); RED CELL DISTRIBUTION WIDTH 15.3 % (9.6-15.2)
[2020-09-21 06:20] LABS: ALBUMIN 1.5 g/dL (3.4-5.0); ANION GAP 3 mmol/L (5-15); CALCIUM 7.5 mg/dL (8.5-10.1); CHLORIDE 107 mmol/L (98-107)
[2020-09-21 06:32] LABS: % IRON SATURATION 11 % (20-55); ALANINE AMINOTRANSFERASE 25 U/L (12-78); ALKALINE PHOSPHATASE 88 U/L (45-117); BILIRUBIN,TOTAL 0.2 mg/dL (0.2-1.0); CREATINE KINASE, TOTAL 120 U/L (26-192); CREATININE 0.45 mg/dL (0.55-1.02); IRON LEVEL 23 mcg/dL (50-170); TOTAL IRON BINDING CAPACITY 201 mcg/dL (250-450); TOTAL PROTEIN 5.2 g/dL (6.4-8.2)
[2020-09-21 06:44] LABS: MD YES
[2020-09-21 06:46] LABS: LYMPH#(MANUAL) 1.64 x10^3/uL (1-3.4); LYMPHS% (MANUAL) 12 % (22-44); MONOS#(MANUAL) 0.96 x10^3/uL (0.3-2.7); MONOS% (MANUAL) 7 % (2-9); MYELOCYTES# (MANUAL) 0.14 x10^3/uL (0-0); MYELOCYTES% (MANUAL) 1 % (0-0)
[2020-09-21 06:47] LABS: ANISOCYTOSIS 1+; BANDS%(MANUAL) 8 % (0-7); EOS#(MANUAL) 0.69 x10^3/uL (0.0-0.4); EOS% (MANUAL) 5 % (1-7); METAMYELOCYTES# (MANUAL) 0.69 x10^3/uL (0-0); METAMYELOCYTES% (MANUAL) 5 % (0-1); OVALOCYTES 1+; POLYCHROMASIA 1+; SEG#(MANUAL) 8.49 x10^3/uL (1.8-6.8); SEGS% (MANUAL) 62 % (42-75)
[2020-09-21 06:48] LABS: <PLATELET ESTIMATE> ADEQUATE; <PLT MORPHOLOGY> NORMAL PLT MORPH
[2020-09-21 07:35] VITALS: BP 142/82
[2020-09-21] MEDS: POLYETHYLENE GLYCOL 17 GM PACKET PO SCH ×2 (09:00→10:02)
[2020-09-21] MEDS: HEPARIN 5,000 UNITS/ML, 1ML SQ SCH ×2 (10:02→19:58)
[2020-09-21] MEDS: IRON SUCROSE COMPLEX 100MG/5ML IV SCH (10:02)
[2020-09-21 14:23] VITALS: BP 138/72
[2020-09-21] MEDS: SODIUM CHLORIDE 0.9% 1,000 ML IV SCH (15:30)
[2020-09-21 20:17] VITALS: BP 137/75
[2020-09-21] MEDS: SENNA/DOCUSATE TABLET PO SCH (20:27)
[2020-09-22 01:34] VITALS: BP 139/77
[2020-09-22] MEDS: AMPICILLIN/SULBACTAM 3 GM in SODIUM CHLORIDE 0.9% 100 ML IV SCH ×4 (05:02→23:02)
[2020-09-22 05:20] LABS: MEAN CORPUSCULAR HEMOGLOBIN 27.2 pg (27.0-34.8); MEAN CORPUSCULAR HGB CONC 32.4 g/dL (32.4-35.8); MEAN PLATELET VOLUME 6.7 fL (7.4-10.4); PLATELET COUNT 291 x10^3/uL (130-400); RED BLOOD COUNT 2.98 x10^6/uL (3.82-5.3); RED CELL DISTRIBUTION WIDTH 16.1 % (9.6-15.2)
[2020-09-22] MEDS: VANCOMYCIN PMX 1GM/200ML 200 ML IV SCH (05:45)
[2020-09-22 05:55] LABS: MD YES
[2020-09-22 05:57] LABS: ANISOCYTOSIS 1+; BAND#(MANUAL) 1.05 x10^3/uL; BANDS%(MANUAL) 7 % (0-7); EOS% (MANUAL) 6 % (1-7); LYMPHS% (MANUAL) 10 % (22-44); METAMYELOCYTES% (MANUAL) 2 % (0-1); MONOS#(MANUAL) 0.75 x10^3/uL (0.3-2.7); MONOS% (MANUAL) 5 % (2-9); MYELOCYTES% (MANUAL) 4 % (0-0); SEGS% (MANUAL) 66 % (42-75)
[2020-09-22 05:58] LABS: <PLATELET ESTIMATE> ADEQUATE; <PLT MORPHOLOGY> NORMAL PLT MORPH; OVALOCYTES 1+; POLYCHROMASIA 1+
[2020-09-22] MEDS: SODIUM CHLORIDE 0.9% 1,000 ML IV SCH (07:33)
[2020-09-22] MEDS: POLYETHYLENE GLYCOL 17 GM PACKET PO SCH (08:04)
[2020-09-22] MEDS: HEPARIN 5,000 UNITS/ML, 1ML SQ SCH ×2 (08:04→20:04)
[2020-09-22] MEDS: IRON SUCROSE COMPLEX 100MG/5ML IV SCH (08:04)
[2020-09-22 08:55] VITALS: BP 135/77
[2020-09-22 15:03] VITALS: BP 126/74
[2020-09-22] MEDS ORDERED: VANCOMYCIN PMX 1GM/200ML 200 ML IV SCH (17:00)
[2020-09-22 19:11] VITALS: BP 130/69
[2020-09-22] MEDS: CARVEDILOL 3.125 MG TABLET PO SCH (20:04)
[2020-09-22] MEDS: SENNA/DOCUSATE TABLET PO SCH (20:05)
[2020-09-23] MEDS: SODIUM CHLORIDE 0.9% 1,000 ML IV SCH ×2 (00:20→17:39)
[2020-09-23 00:21] VITALS: BP 124/65
[2020-09-23] MEDS: AMPICILLIN/SULBACTAM 3 GM in SODIUM CHLORIDE 0.9% 100 ML IV SCH ×4 (05:05→23:26)
[2020-09-23 05:18] LABS: MEAN CORPUSCULAR HGB CONC 32.3 g/dL (32.4-35.8); MEAN PLATELET VOLUME 6.8 fL (7.4-10.4); PLATELET COUNT 318 x10^3/uL (130-400); RED BLOOD COUNT 3.05 x10^6/uL (3.82-5.3); RED CELL DISTRIBUTION WIDTH 16.4 % (9.6-15.2)
[2020-09-23 06:05] LABS: MD YES
[2020-09-23 06:07] LABS: ANISOCYTOSIS 1+; BAND#(MANUAL) 1.27 x10^3/uL; BANDS%(MANUAL) 8 % (0-7); EOS#(MANUAL) 1.43 x10^3/uL (0.0-0.4); EOS% (MANUAL) 9 % (1-7); LYMPH#(MANUAL) 2.23 x10^3/uL (1-3.4); LYMPHS% (MANUAL) 14 % (22-44); METAMYELOCYTES# (MANUAL) 0.16 x10^3/uL (0-0); METAMYELOCYTES% (MANUAL) 1 % (0-1); MONOS#(MANUAL) 1.11 x10^3/uL (0.3-2.7); MONOS% (MANUAL) 7 % (2-9); MYELOCYTES# (MANUAL) 0.16 x10^3/uL (0-0); MYELOCYTES% (MANUAL) 1 % (0-0); POLYCHROMASIA 1+; SEG#(MANUAL) 9.54 x10^3/uL (1.8-6.8); SEGS% (MANUAL) 60 % (42-75)
[2020-09-23 06:08] LABS: <PLATELET ESTIMATE> ADEQUATE
[2020-09-23 06:10] LABS: <PLT MORPHOLOGY> NORMAL PLT MORPH
[2020-09-23 07:21] VITALS: BP 131/75
[2020-09-23] MEDS: POLYETHYLENE GLYCOL 17 GM PACKET PO SCH (08:04)
[2020-09-23] MEDS: HEPARIN 5,000 UNITS/ML, 1ML SQ SCH ×2 (08:04→21:38)
[2020-09-23 13:59] VITALS: BP 135/72
[2020-09-23 18:38] VITALS: BP 126/66
[2020-09-23] MEDS: CARVEDILOL 3.125 MG TABLET PO SCH (21:38)
[2020-09-23] MEDS: SENNA/DOCUSATE TABLET PO SCH (21:38)
[2020-09-24] MEDS ORDERED: PERMETHRIN CRM 5%, 60GM TP ONE
[2020-09-24 00:30] VITALS: BP 122/69
[2020-09-24] MEDS: AMPICILLIN/SULBACTAM 3 GM in SODIUM CHLORIDE 0.9% 100 ML IV SCH ×4 (05:06→22:49)
[2020-09-24 05:38] LABS: MEAN CORPUSCULAR HEMOGLOBIN 27.2 pg (27.0-34.8); MEAN CORPUSCULAR HGB CONC 32.3 g/dL (32.4-35.8); MEAN PLATELET VOLUME 7.1 fL (7.4-10.4); PLATELET COUNT 286 x10^3/uL (130-400); RED BLOOD COUNT 2.92 x10^6/uL (3.82-5.3); RED CELL DISTRIBUTION WIDTH 16.2 % (9.6-15.2)
[2020-09-24 06:04] LABS: MD YES
[2020-09-24 06:07] LABS: ANISOCYTOSIS 1+; BAND#(MANUAL) 0.14 x10^3/uL; BANDS%(MANUAL) 1 % (0-7); EOS#(MANUAL) 0.81 x10^3/uL (0.0-0.4); EOS% (MANUAL) 6 % (1-7); LYMPH#(MANUAL) 1.08 x10^3/uL (1-3.4); LYMPHS% (MANUAL) 8 % (22-44); METAMYELOCYTES# (MANUAL) 0.27 x10^3/uL (0-0); METAMYELOCYTES% (MANUAL) 2 % (0-1); MONOS#(MANUAL) 0.41 x10^3/uL (0.3-2.7); MONOS% (MANUAL) 3 % (2-9); MYELOCYTES# (MANUAL) 0.14 x10^3/uL (0-0); MYELOCYTES% (MANUAL) 1 % (0-0); POLYCHROMASIA 1+; SEG#(MANUAL) 10.67 x10^3/uL (1.8-6.8); SEGS% (MANUAL) 79 % (42-75)
[2020-09-24 06:08] LABS: <PLATELET ESTIMATE> ADEQUATE; <PLT MORPHOLOGY> NORMAL PLT MORPH
[2020-09-24] MEDS: SODIUM CHLORIDE 0.9% 1,000 ML IV SCH (08:37)
[2020-09-24] MEDS: POLYETHYLENE GLYCOL 17 GM PACKET PO SCH (08:38)
[2020-09-24] MEDS: HEPARIN 5,000 UNITS/ML, 1ML SQ SCH ×2 (08:38→22:05)
[2020-09-24 08:46] VITALS: BP 134/77
[2020-09-24 13:41] LABS: ANA SCREEN NEGATIVE (Negative)
[2020-09-24 13:55] VITALS: BP 132/73
[2020-09-24 19:25] VITALS: BP 139/76
[2020-09-24] MEDS: SENNA/DOCUSATE TABLET PO SCH (22:04)
[2020-09-24] MEDS: CARVEDILOL 3.125 MG TABLET PO SCH (22:05)
[2020-09-25] MEDS ORDERED: PIPERONYL BUTOXIDE/PYRETHRINS 4OZ. SHAMPOO TP SCH
[2020-09-25] MEDS: PIPERONYL BUTOXIDE/PYRETHRINS 4OZ. SHAMPOO TP SCH (02:04)
[2020-09-25 03:53] VITALS: BP 142/81
[2020-09-25 05:08] LABS: MEAN CORPUSCULAR HEMOGLOBIN 27.3 pg (27.0-34.8); MEAN CORPUSCULAR HGB CONC 31.8 g/dL (32.4-35.8); MEAN PLATELET VOLUME 7.4 fL (7.4-10.4); PLATELET COUNT 313 x10^3/uL (130-400); RED BLOOD COUNT 3.14 x10^6/uL (3.82-5.3); RED CELL DISTRIBUTION WIDTH 16.5 % (9.6-15.2)
[2020-09-25] MEDS: AMPICILLIN/SULBACTAM 3 GM in SODIUM CHLORIDE 0.9% 100 ML IV SCH ×4 (05:10→23:30)
[2020-09-25 05:58] LABS: MD YES
[2020-09-25 06:01] LABS: BASOS#(MANUAL) 0.14 x10^3/uL (0-0.1); BASOS% (MANUAL) 1 % (0-1); EOS#(MANUAL) 0.28 x10^3/uL (0.0-0.4); EOS% (MANUAL) 2 % (1-7); LYMPH#(MANUAL) 1.24 x10^3/uL (1-3.4); LYMPHS% (MANUAL) 9 % (22-44); MONOS#(MANUAL) 0.97 x10^3/uL (0.3-2.7); MONOS% (MANUAL) 7 % (2-9); SEG#(MANUAL) 11.18 x10^3/uL (1.8-6.8); SEGS% (MANUAL) 81 % (42-75)
[2020-09-25 06:02] LABS: <PLATELET ESTIMATE> ADEQUATE; <PLT MORPHOLOGY> NORMAL PLT MORPH; ANISOCYTOSIS 1+; POLYCHROMASIA 1+
[2020-09-25 07:13] VITALS: BP 129/74
[2020-09-25] MEDS: HEPARIN 5,000 UNITS/ML, 1ML SQ SCH ×2 (08:47→20:29)
[2020-09-25] MEDS: POLYETHYLENE GLYCOL 17 GM PACKET PO SCH (08:47)
[2020-09-25] MEDS: SODIUM CHLORIDE 0.9% 1,000 ML IV SCH (08:49)
[2020-09-25 12:58] VITALS: BP 139/74
[2020-09-25 19:33] VITALS: BP 122/66
[2020-09-25] MEDS: SENNA/DOCUSATE TABLET PO SCH (20:29)
[2020-09-25] MEDS: CARVEDILOL 3.125 MG TABLET PO SCH (20:29)
[2020-09-26 00:18] VITALS: BP 119/70
[2020-09-26] MEDS: SODIUM CHLORIDE 0.9% 1,000 ML IV SCH ×2 (02:14→20:32)
[2020-09-26] MEDS: AMPICILLIN/SULBACTAM 3 GM in SODIUM CHLORIDE 0.9% 100 ML IV SCH ×4 (04:45→23:15)
[2020-09-26 05:24] LABS: BASOPHILS % (AUTO) 1 % (0-1); EOSINOPHILS % (AUTO) 5 % (1-7); LYMPHOCYTES % (AUTO) 15 % (22-44); MEAN CORPUSCULAR HEMOGLOBIN 27.2 pg (27.0-34.8); MEAN CORPUSCULAR HGB CONC 31.8 g/dL (32.4-35.8); MEAN PLATELET VOLUME 7.6 fL (7.4-10.4); MONOCYTES % (AUTO) 7 % (2-9); NEUTROPHILS % (AUTO) 73 % (42-75); PLATELET COUNT 302 x10^3/uL (130-400); RED BLOOD COUNT 2.97 x10^6/uL (3.82-5.3); RED CELL DISTRIBUTION WIDTH 16.9 % (9.6-15.2)
[2020-09-26 05:27] LABS: CHLORIDE 106 mmol/L (98-107); MD NO
[2020-09-26 05:37] LABS: ANION GAP 6 mmol/L (5-15); CREATININE 0.44 mg/dL (0.55-1.02)
[2020-09-26 07:43] VITALS: BP 138/75
[2020-09-26] MEDS ORDERED: SENNA/DOCUSATE TABLET PO PRN (08:00)
[2020-09-26] MEDS: HEPARIN 5,000 UNITS/ML, 1ML SQ SCH ×2 (08:41→20:32)
[2020-09-26] MEDS: POLYETHYLENE GLYCOL 17 GM PACKET PO SCH (08:41)
[2020-09-26 13:43] VITALS: BP 147/83
[2020-09-26 18:42] VITALS: BP 140/82
[2020-09-26] MEDS: CARVEDILOL 3.125 MG TABLET PO SCH (20:32)
[2020-09-27 00:16] VITALS: BP 134/78
[2020-09-27] MEDS: AMPICILLIN/SULBACTAM 3 GM in SODIUM CHLORIDE 0.9% 100 ML IV SCH ×4 (04:50→22:53)
[2020-09-27 08:28] VITALS: BP 147/82
[2020-09-27] MEDS: POLYETHYLENE GLYCOL 17 GM PACKET PO SCH (08:38)
[2020-09-27] MEDS: HEPARIN 5,000 UNITS/ML, 1ML SQ SCH ×2 (08:38→20:04)
[2020-09-27] MEDS: CARVEDILOL 3.125 MG TABLET PO SCH ×2 (08:39→20:05)
[2020-09-27] MEDS: SODIUM CHLORIDE 0.9% 1,000 ML IV SCH (12:07)
[2020-09-27 13:32] VITALS: BP 128/70
[2020-09-27 19:17] VITALS: BP 117/73
[2020-09-28 01:30] VITALS: BP 144/83
[2020-09-28] MEDS: AMPICILLIN/SULBACTAM 3 GM in SODIUM CHLORIDE 0.9% 100 ML IV SCH ×4 (04:59→22:51)
[2020-09-28 06:20] LABS: HCT (SEDRATE) 26.9 % (34.6-47.8)
[2020-09-28 06:22] LABS: BASOPHILS % (AUTO) 1 % (0-1); EOSINOPHILS % (AUTO) 5 % (1-7); LYMPHOCYTES % (AUTO) 13 % (22-44); MEAN CORPUSCULAR HEMOGLOBIN 27.4 pg (27.0-34.8); MEAN CORPUSCULAR HGB CONC 31.9 g/dL (32.4-35.8); MEAN PLATELET VOLUME 7.5 fL (7.4-10.4); MONOCYTES % (AUTO) 8 % (2-9); NEUTROPHILS % (AUTO) 74 % (42-75); PLATELET COUNT 346 x10^3/uL (130-400); RED BLOOD COUNT 3.18 x10^6/uL (3.82-5.3); RED CELL DISTRIBUTION WIDTH 17.2 % (9.6-15.2)
[2020-09-28 06:28] LABS: ALANINE AMINOTRANSFERASE 20 U/L (12-78); ANION GAP 4 mmol/L (5-15); C-REACTIVE PROTEIN, QUANT 0.69 mg/dL (0.02-0.49); CALCIUM 8.1 mg/dL (8.5-10.1); CHLORIDE 107 mmol/L (98-107); CREATININE 0.42 mg/dL (0.55-1.02)
[2020-09-28 06:29] LABS: MD NO
[2020-09-28 06:30] LABS: ALKALINE PHOSPHATASE 93 U/L (45-117); BILIRUBIN,TOTAL 0.3 mg/dL (0.2-1.0); TOTAL PROTEIN 6.1 g/dL (6.4-8.2)
[2020-09-28] MEDS: SODIUM CHLORIDE 0.9% 1,000 ML IV SCH ×2 (06:44→20:54)
[2020-09-28 08:28] VITALS: BP 128/72
[2020-09-28] MEDS: CARVEDILOL 3.125 MG TABLET PO SCH ×2 (08:33→20:54)
[2020-09-28] MEDS: HEPARIN 5,000 UNITS/ML, 1ML SQ SCH ×2 (08:33→20:54)
[2020-09-28] MEDS: POLYETHYLENE GLYCOL 17 GM PACKET PO SCH (08:33)
[2020-09-28 12:14] VITALS: BP 125/76
[2020-09-28 19:55] VITALS: BP 121/70
[2020-09-29 00:08] VITALS: BP 131/74
[2020-09-29] MEDS: AMPICILLIN/SULBACTAM 3 GM in SODIUM CHLORIDE 0.9% 100 ML IV SCH ×4 (04:56→23:34)
[2020-09-29 07:59] VITALS: BP 136/70
[2020-09-29] MEDS: CARVEDILOL 3.125 MG TABLET PO SCH ×2 (08:03→20:14)
[2020-09-29] MEDS: HEPARIN 5,000 UNITS/ML, 1ML SQ SCH ×2 (08:03→20:14)
[2020-09-29] MEDS: POLYETHYLENE GLYCOL 17 GM PACKET PO SCH (08:04)
[2020-09-29 13:46] VITALS: BP 100/53
[2020-09-29] MEDS: SODIUM CHLORIDE 0.9% 1,000 ML IV SCH (13:51)
[2020-09-29 19:20] VITALS: BP 138/66
[2020-09-30 01:25] VITALS: BP 124/64
[2020-09-30] MEDS: AMPICILLIN/SULBACTAM 3 GM in SODIUM CHLORIDE 0.9% 100 ML IV SCH ×3 (06:00→20:04)
[2020-09-30] MEDS: CARVEDILOL 3.125 MG TABLET PO SCH ×2 (08:05→20:05)
[2020-09-30] MEDS: HEPARIN 5,000 UNITS/ML, 1ML SQ SCH ×2 (08:05→20:04)
[2020-09-30] MEDS: POLYETHYLENE GLYCOL 17 GM PACKET PO SCH (08:05)
[2020-09-30 08:06] VITALS: BP 133/76
[2020-09-30] MEDS: MULTIVITAMINS WITH IRON TABLET PO SCH (08:16)
[2020-09-30 13:07] VITALS: BP 107/61
[2020-09-30 19:16] VITALS: BP 113/60
[2020-10-01 01:30] VITALS: BP 109/67
[2020-10-01] MEDS: AMPICILLIN/SULBACTAM 3 GM in SODIUM CHLORIDE 0.9% 100 ML IV SCH ×4 (02:02→19:43)
[2020-10-01 06:33] LABS: BASOPHILS % (AUTO) 1 % (0-1); EOSINOPHILS % (AUTO) 6 % (1-7); LYMPHOCYTES % (AUTO) 16 % (22-44); MEAN CORPUSCULAR HEMOGLOBIN 27.4 pg (27.0-34.8); MEAN CORPUSCULAR HGB CONC 32.3 g/dL (32.4-35.8); MEAN PLATELET VOLUME 7.4 fL (7.4-10.4); MONOCYTES % (AUTO) 9 % (2-9); NEUTROPHILS % (AUTO) 68 % (42-75); PLATELET COUNT 341 x10^3/uL (130-400); RED BLOOD COUNT 3.38 x10^6/uL (3.82-5.3); RED CELL DISTRIBUTION WIDTH 17.9 % (9.6-15.2)
[2020-10-01 06:34] LABS: MD NO
[2020-10-01 06:41] LABS: ANION GAP 4 mmol/L (5-15); CALCIUM 8.4 mg/dL (8.5-10.1); CHLORIDE 106 mmol/L (98-107); CREATININE 0.49 mg/dL (0.55-1.02)
[2020-10-01 06:46] VITALS: BP 111/68
[2020-10-01] MEDS: MULTIVITAMINS WITH IRON TABLET PO SCH (07:40)
[2020-10-01] MEDS: HEPARIN 5,000 UNITS/ML, 1ML SQ SCH ×2 (07:40→19:42)
[2020-10-01] MEDS: POLYETHYLENE GLYCOL 17 GM PACKET PO SCH (07:40)
[2020-10-01] MEDS: CARVEDILOL 3.125 MG TABLET PO SCH ×2 (07:41→19:42)
[2020-10-01 14:41] VITALS: BP 100/59
[2020-10-01 19:40] VITALS: BP 120/69
[2020-10-02] MEDS: PIPERONYL BUTOXIDE/PYRETHRINS 4OZ. SHAMPOO TP SCH (01:57)
[2020-10-02] MEDS: AMPICILLIN/SULBACTAM 3 GM in SODIUM CHLORIDE 0.9% 100 ML IV SCH ×4 (01:57→22:17)
[2020-10-02 01:59] VITALS: BP 118/65
[2020-10-02 07:53] VITALS: BP 131/81
[2020-10-02] MEDS: POLYETHYLENE GLYCOL 17 GM PACKET PO SCH (09:28)
[2020-10-02] MEDS: MULTIVITAMINS WITH IRON TABLET PO SCH (09:29)
[2020-10-02] MEDS: CARVEDILOL 3.125 MG TABLET PO SCH ×2 (09:29→21:19)
[2020-10-02] MEDS: HEPARIN 5,000 UNITS/ML, 1ML SQ SCH ×2 (09:29→21:19)
[2020-10-02 14:20] VITALS: BP 102/56
[2020-10-02 19:20] VITALS: BP 112/64
[2020-10-02 21:18] VITALS: BP 100/55
[2020-10-03 01:18] VITALS: BP 126/70
[2020-10-03] MEDS: AMPICILLIN/SULBACTAM 3 GM in SODIUM CHLORIDE 0.9% 100 ML IV SCH ×4 (04:15→21:48)
[2020-10-03 07:51] VITALS: BP 130/81
[2020-10-03] MEDS: HEPARIN 5,000 UNITS/ML, 1ML SQ SCH ×2 (10:17→21:47)
[2020-10-03] MEDS: POLYETHYLENE GLYCOL 17 GM PACKET PO SCH (10:17)
[2020-10-03] MEDS: CARVEDILOL 3.125 MG TABLET PO SCH ×2 (10:17→21:47)
[2020-10-03] MEDS: MULTIVITAMINS WITH IRON TABLET PO SCH (10:17)
[2020-10-03 15:37] VITALS: BP 107/62
[2020-10-03 21:48] VITALS: BP 120/67
[2020-10-04 00:08] VITALS: BP 111/76
[2020-10-04] MEDS: AMPICILLIN/SULBACTAM 3 GM in SODIUM CHLORIDE 0.9% 100 ML IV SCH ×4 (04:07→22:26)
[2020-10-04 08:03] VITALS: BP 122/72
[2020-10-04] MEDS: POLYETHYLENE GLYCOL 17 GM PACKET PO SCH ×2 (09:00→10:41)
[2020-10-04] MEDS: HEPARIN 5,000 UNITS/ML, 1ML SQ SCH ×2 (10:41→22:27)
[2020-10-04] MEDS: CARVEDILOL 3.125 MG TABLET PO SCH ×2 (10:41→22:27)
[2020-10-04] MEDS: MULTIVITAMINS WITH IRON TABLET PO SCH (10:41)
[2020-10-04 14:21] VITALS: BP 105/68
[2020-10-04 20:00] VITALS: BP 109/66
[2020-10-05 00:30] VITALS: BP 101/66
[2020-10-05 01:57] VITALS: BP 116/67
[2020-10-05] MEDS: AMPICILLIN/SULBACTAM 3 GM in SODIUM CHLORIDE 0.9% 100 ML IV SCH ×4 (04:25→22:44)
[2020-10-05 06:03] LABS: BASOPHILS % (AUTO) 1 % (0-1); EOSINOPHILS % (AUTO) 7 % (1-7); LYMPHOCYTES % (AUTO) 21 % (22-44); MEAN CORPUSCULAR HEMOGLOBIN 26.9 pg (27.0-34.8); MEAN CORPUSCULAR HGB CONC 31.9 g/dL (32.4-35.8); MEAN PLATELET VOLUME 7.6 fL (7.4-10.4); MONOCYTES % (AUTO) 12 % (2-9); NEUTROPHILS % (AUTO) 58 % (42-75); PLATELET COUNT 317 x10^3/uL (130-400); RED BLOOD COUNT 3.52 x10^6/uL (3.82-5.3); RED CELL DISTRIBUTION WIDTH 17.5 % (9.6-15.2)
[2020-10-05 06:07] LABS: HCT (SEDRATE) 29.2 % (34.6-47.8)
[2020-10-05 06:08] LABS: MD NO
[2020-10-05 06:13] LABS: ALBUMIN 2.5 g/dL (3.4-5.0); ANION GAP 6 mmol/L (5-15); C-REACTIVE PROTEIN, QUANT 0.34 mg/dL (0.02-0.49); CALCIUM 8.5 mg/dL (8.5-10.1); CHLORIDE 103 mmol/L (98-107)
[2020-10-05 06:16] LABS: ALANINE AMINOTRANSFERASE 14 U/L (12-78); ALKALINE PHOSPHATASE 103 U/L (45-117); BILIRUBIN,TOTAL 0.2 mg/dL (0.2-1.0); TOTAL PROTEIN 6.9 g/dL (6.4-8.2)
[2020-10-05 08:45] VITALS: BP 106/65
[2020-10-05] MEDS: MULTIVITAMINS WITH IRON TABLET PO SCH (09:35)
[2020-10-05] MEDS: CARVEDILOL 3.125 MG TABLET PO SCH ×2 (09:36→21:15)
[2020-10-05] MEDS: HEPARIN 5,000 UNITS/ML, 1ML SQ SCH ×2 (09:37→22:47)
[2020-10-05 12:38] VITALS: BP 111/70
[2020-10-05] MEDS ORDERED: OMNIPAQUE 350 MG/ML, 100ML BOTTLE ONE (14:03)
[2020-10-05 18:43] VITALS: BP 99/60
[2020-10-05 21:14] VITALS: BP 112/72
[2020-10-06 00:11] VITALS: BP 118/68
[2020-10-06] MEDS: AMPICILLIN/SULBACTAM 3 GM in SODIUM CHLORIDE 0.9% 100 ML IV SCH ×4 (04:44→23:02)
[2020-10-06 07:38] VITALS: BP 126/74
[2020-10-06] MEDS: POLYETHYLENE GLYCOL 17 GM PACKET PO SCH (08:22)
[2020-10-06] MEDS: HEPARIN 5,000 UNITS/ML, 1ML SQ SCH ×2 (08:23→23:02)
[2020-10-06] MEDS: CARVEDILOL 3.125 MG TABLET PO SCH ×2 (08:35→19:45)
[2020-10-06] MEDS: MULTIVITAMINS WITH IRON TABLET PO SCH (08:36)
[2020-10-06 15:00] VITALS: BP 132/82
[2020-10-06] MEDS ORDERED: FENTANYL PF 100 MCG/2ML ONE (15:58)
[2020-10-06] MEDS ORDERED: FLUMAZENIL 0.1 MG/1 ML, 5ML ONE (15:58)
[2020-10-06] MEDS ORDERED: NALOXONE 1 MG/ML, 2ML ONE (15:58)
[2020-10-06] MEDS ORDERED: MIDAZOLAM 1 MG/ML, 5ML ONE (15:58)
[2020-10-06] MEDS ORDERED: LIDOCAINE 1%, 10ML ONE (16:04)
[2020-10-06 19:00] VITALS: BP 106/67
[2020-10-07 01:05] VITALS: BP 110/69
[2020-10-07] MEDS: AMPICILLIN/SULBACTAM 3 GM in SODIUM CHLORIDE 0.9% 100 ML IV SCH ×4 (04:27→23:01)
[2020-10-07 06:25] VITALS: BP 118/70
[2020-10-07] MEDS: POLYETHYLENE GLYCOL 17 GM PACKET PO SCH (09:00)
[2020-10-07] MEDS: MULTIVITAMINS WITH IRON TABLET PO SCH (09:23)
[2020-10-07] MEDS: HEPARIN 5,000 UNITS/ML, 1ML SQ SCH ×2 (09:24→23:01)
[2020-10-07] MEDS: CARVEDILOL 3.125 MG TABLET PO SCH ×2 (09:24→20:08)
[2020-10-07 13:10] VITALS: BP 105/68
[2020-10-07 19:34] VITALS: BP 106/67
[2020-10-07 20:06] VITALS: BP 113/65
[2020-10-08 02:23] VITALS: BP 146/79
[2020-10-08] MEDS: AMPICILLIN/SULBACTAM 3 GM in SODIUM CHLORIDE 0.9% 100 ML IV SCH (04:45)
[2020-10-08 06:51] VITALS: BP 145/84
[2020-10-08] MEDS: CARVEDILOL 3.125 MG TABLET PO SCH ×2 (08:23→21:31)
[2020-10-08] MEDS: MULTIVITAMINS WITH IRON TABLET PO SCH (08:23)
[2020-10-08] MEDS: POLYETHYLENE GLYCOL 17 GM PACKET PO SCH (08:23)
[2020-10-08] MEDS: AMOXICILLIN/CLAV 500-125MG TABLET PO SCH ×2 (10:19→18:09)
[2020-10-08] MEDS: HEPARIN 5,000 UNITS/ML, 1ML SQ SCH ×2 (10:20→21:31)
[2020-10-08 13:57] VITALS: BP 116/73
[2020-10-08 21:26] VITALS: BP 110/65
[2020-10-09] MEDS: AMOXICILLIN/CLAV 500-125MG TABLET PO SCH ×3 (01:59→17:10)
[2020-10-09 02:01] VITALS: BP 128/79
[2020-10-09 07:56] VITALS: BP 116/69
[2020-10-09] MEDS: CARVEDILOL 3.125 MG TABLET PO SCH ×2 (08:26→22:01)
[2020-10-09] MEDS: MULTIVITAMINS WITH IRON TABLET PO SCH (08:26)
[2020-10-09] MEDS: POLYETHYLENE GLYCOL 17 GM PACKET PO SCH (08:26)
[2020-10-09] MEDS: HEPARIN 5,000 UNITS/ML, 1ML SQ SCH ×2 (10:05→22:01)
[2020-10-09 13:37] VITALS: BP 105/66
[2020-10-09 21:57] VITALS: BP 115/61
[2020-10-10] MEDS: AMOXICILLIN/CLAV 500-125MG TABLET PO SCH ×2 (02:02→10:04)
[2020-10-10 02:03] VITALS: BP 107/68
[2020-10-10 07:11] VITALS: BP 111/68
[2020-10-10] MEDS: POLYETHYLENE GLYCOL 17 GM PACKET PO SCH (09:00)
[2020-10-10] MEDS: MULTIVITAMINS WITH IRON TABLET PO SCH (09:24)
[2020-10-10] MEDS: CARVEDILOL 3.125 MG TABLET PO SCH ×2 (09:25→20:07)
[2020-10-10] MEDS: HEPARIN 5,000 UNITS/ML, 1ML SQ SCH ×2 (09:25→22:08)
[2020-10-10 13:58] VITALS: BP 111/70
[2020-10-10 20:01] VITALS: BP 112/70
[2020-10-11 01:57] VITALS: BP 141/78
[2020-10-11 07:17] VITALS: BP 147/81
[2020-10-11] MEDS: MULTIVITAMINS WITH IRON TABLET PO SCH (07:47)
[2020-10-11] MEDS: CARVEDILOL 3.125 MG TABLET PO SCH ×2 (07:47→22:23)
[2020-10-11] MEDS: POLYETHYLENE GLYCOL 17 GM PACKET PO SCH (07:47)
[2020-10-11] MEDS: HEPARIN 5,000 UNITS/ML, 1ML SQ SCH ×2 (09:57→22:23)
[2020-10-11 12:46] VITALS: BP 132/79
[2020-10-11 20:00] VITALS: BP 119/71
[2020-10-11 22:20] VITALS: BP 119/71
[2020-10-12 04:58] VITALS: BP 119/77
[2020-10-12 05:49] LABS: BASOPHILS % (AUTO) 1 % (0-1); EOSINOPHILS % (AUTO) 4 % (1-7); LYMPHOCYTES % (AUTO) 25 % (22-44); MEAN CORPUSCULAR HEMOGLOBIN 26.7 pg (27.0-34.8); MEAN CORPUSCULAR HGB CONC 32.5 g/dL (32.4-35.8); MEAN PLATELET VOLUME 8.3 fL (7.4-10.4); MONOCYTES % (AUTO) 14 % (2-9); NEUTROPHILS % (AUTO) 57 % (42-75); PLATELET COUNT 376 x10^3/uL (130-400); RED BLOOD COUNT 3.97 x10^6/uL (3.82-5.3)
[2020-10-12 05:50] LABS: HCT (SEDRATE) 32.8 % (34.6-47.8)
[2020-10-12 05:51] LABS: MD NO
[2020-10-12 06:00] LABS: ALBUMIN 2.8 g/dL (3.4-5.0); CALCIUM 8.8 mg/dL (8.5-10.1); CHLORIDE 105 mmol/L (98-107)
[2020-10-12 06:05] LABS: ALANINE AMINOTRANSFERASE 13 U/L (12-78); ALKALINE PHOSPHATASE 110 U/L (45-117); ANION GAP 5 mmol/L (5-15); BILIRUBIN,TOTAL 0.2 mg/dL (0.2-1.0); C-REACTIVE PROTEIN, QUANT 0.54 mg/dL (0.02-0.49); CREATININE 0.46 mg/dL (0.55-1.02); TOTAL PROTEIN 7.1 g/dL (6.4-8.2)
[2020-10-12 08:22] VITALS: BP 115/69
[2020-10-12] MEDS: MULTIVITAMINS WITH IRON TABLET PO SCH (09:13)
[2020-10-12] MEDS: HEPARIN 5,000 UNITS/ML, 1ML SQ SCH ×2 (09:13→22:17)
[2020-10-12] MEDS: POLYETHYLENE GLYCOL 17 GM PACKET PO SCH (09:13)
[2020-10-12] MEDS: CARVEDILOL 3.125 MG TABLET PO SCH ×2 (09:13→20:27)
[2020-10-12 12:01] VITALS: BP 113/76
[2020-10-12 19:32] VITALS: BP 117/72
[2020-10-12 20:20] VITALS: BP_SYST 101; BP_SYST 110; BP_DIAS 61; BP_DIAS 64
[2020-10-13 00:31] VITALS: BP 127/76
[2020-10-13 07:04] VITALS: BP 130/69
[2020-10-13] MEDS: MULTIVITAMINS WITH IRON TABLET PO SCH (10:33)
[2020-10-13] MEDS: POLYETHYLENE GLYCOL 17 GM PACKET PO SCH (10:34)
[2020-10-13] MEDS: HEPARIN 5,000 UNITS/ML, 1ML SQ SCH ×2 (10:34→22:43)
[2020-10-13] MEDS: CARVEDILOL 3.125 MG TABLET PO SCH ×2 (10:34→20:59)
[2020-10-13 12:09] VITALS: BP 128/68
[2020-10-13 19:48] VITALS: BP 122/72
[2020-10-13 20:58] VITALS: BP 110/68
[2020-10-14 00:19] VITALS: BP 99/60
[2020-10-14 06:20] VITALS: BP 121/72
[2020-10-14] MEDS: MULTIVITAMINS WITH IRON TABLET PO SCH (08:09)
[2020-10-14] MEDS: POLYETHYLENE GLYCOL 17 GM PACKET PO SCH (08:09)
[2020-10-14] MEDS: CARVEDILOL 3.125 MG TABLET PO SCH ×2 (08:10→21:46)
[2020-10-14] MEDS: HEPARIN 5,000 UNITS/ML, 1ML SQ SCH ×2 (10:06→21:46)
[2020-10-14 12:26] VITALS: BP 118/70
[2020-10-14 20:24] VITALS: BP 108/67
[2020-10-14 21:45] VITALS: BP 113/62
[2020-10-15 01:11] VITALS: BP 108/63
[2020-10-15 07:04] VITALS: BP 107/57
[2020-10-15] MEDS: CARVEDILOL 3.125 MG TABLET PO SCH ×2 (08:13→20:04)
[2020-10-15] MEDS: MULTIVITAMINS WITH IRON TABLET PO SCH (08:13)
[2020-10-15] MEDS: POLYETHYLENE GLYCOL 17 GM PACKET PO SCH (08:13)
[2020-10-15] MEDS: HEPARIN 5,000 UNITS/ML, 1ML SQ SCH ×2 (10:46→22:39)
[2020-10-15 12:29] VITALS: BP 116/77
[2020-10-15 18:43] VITALS: BP 94/55
[2020-10-16 00:07] VITALS: BP 114/67
[2020-10-16 07:10] VITALS: BP 116/74
[2020-10-16] MEDS: POLYETHYLENE GLYCOL 17 GM PACKET PO SCH (07:23)
[2020-10-16] MEDS: MULTIVITAMINS WITH IRON TABLET PO SCH (07:24)
[2020-10-16] MEDS: CARVEDILOL 3.125 MG TABLET PO SCH ×2 (07:24→21:20)
[2020-10-16] MEDS: HEPARIN 5,000 UNITS/ML, 1ML SQ SCH ×2 (09:48→21:20)
[2020-10-16 12:48] VITALS: BP 121/77
[2020-10-16 19:50] VITALS: BP 139/80
[2020-10-16 21:19] VITALS: BP 112/70
[2020-10-17 01:11] VITALS: BP 130/74
[2020-10-17 06:45] VITALS: BP 126/71
[2020-10-17] MEDS: HEPARIN 5,000 UNITS/ML, 1ML SQ SCH ×2 (09:33→21:37)
[2020-10-17] MEDS: MULTIVITAMINS WITH IRON TABLET PO SCH (09:35)
[2020-10-17] MEDS: POLYETHYLENE GLYCOL 17 GM PACKET PO SCH (09:35)
[2020-10-17] MEDS: CARVEDILOL 3.125 MG TABLET PO SCH ×2 (09:35→21:36)
[2020-10-17 12:22] VITALS: BP 124/76
[2020-10-17 19:30] VITALS: BP 108/65
[2020-10-18 01:30] VITALS: BP 117/74
[2020-10-18 06:58] VITALS: BP 120/76
[2020-10-18] MEDS: MULTIVITAMINS WITH IRON TABLET PO SCH (09:05)
[2020-10-18] MEDS: CARVEDILOL 3.125 MG TABLET PO SCH ×2 (09:05→22:21)
[2020-10-18] MEDS: HEPARIN 5,000 UNITS/ML, 1ML SQ SCH ×2 (09:05→22:21)
[2020-10-18] MEDS: POLYETHYLENE GLYCOL 17 GM PACKET PO SCH (09:06)
[2020-10-18 12:04] VITALS: BP 127/82
[2020-10-18 19:23] VITALS: BP 110/69
[2020-10-18 22:19] VITALS: BP 115/74
[2020-10-19 01:20] VITALS: BP 106/64
[2020-10-19 08:05] VITALS: BP 122/67
[2020-10-19] MEDS: POLYETHYLENE GLYCOL 17 GM PACKET PO SCH (09:00)
[2020-10-19] MEDS: HEPARIN 5,000 UNITS/ML, 1ML SQ SCH ×2 (09:37→20:55)
[2020-10-19] MEDS: CARVEDILOL 3.125 MG TABLET PO SCH ×2 (09:37→20:55)
[2020-10-19] MEDS: MULTIVITAMINS WITH IRON TABLET PO SCH (09:40)
[2020-10-19 13:02] VITALS: BP 122/82
[2020-10-19 20:00] VITALS: BP 104/60
[2020-10-19 20:54] VITALS: BP 109/67
[2020-10-20 01:49] VITALS: BP 116/73
[2020-10-20 07:33] VITALS: BP 117/73
[2020-10-20] MEDS: POLYETHYLENE GLYCOL 17 GM PACKET PO SCH (09:00)
[2020-10-20] MEDS: HEPARIN 5,000 UNITS/ML, 1ML SQ SCH ×2 (09:14→20:50)
[2020-10-20] MEDS: MULTIVITAMINS WITH IRON TABLET PO SCH (09:14)
[2020-10-20] MEDS: CARVEDILOL 3.125 MG TABLET PO SCH ×2 (09:14→20:49)
[2020-10-20 14:29] VITALS: BP 115/69
[2020-10-20 19:51] VITALS: BP 108/70
[2020-10-21 01:09] VITALS: BP 104/61
[2020-10-21 07:08] VITALS: BP 118/72
[2020-10-21] MEDS: POLYETHYLENE GLYCOL 17 GM PACKET PO SCH (10:09)
[2020-10-21] MEDS: HEPARIN 5,000 UNITS/ML, 1ML SQ SCH ×2 (10:09→20:17)
[2020-10-21] MEDS: CARVEDILOL 3.125 MG TABLET PO SCH ×2 (10:10→20:17)
[2020-10-21] MEDS: MULTIVITAMINS WITH IRON TABLET PO SCH (10:10)
[2020-10-21 12:13] VITALS: BP 124/77
[2020-10-21 20:00] VITALS: BP 111/72
[2020-10-21 20:15] VITALS: BP 105/67
[2020-10-22 02:00] VITALS: BP 102/64
[2020-10-22 07:45] VITALS: BP 114/72
[2020-10-22] MEDS: MULTIVITAMINS WITH IRON TABLET PO SCH (08:48)
[2020-10-22] MEDS: HEPARIN 5,000 UNITS/ML, 1ML SQ SCH ×2 (08:48→20:04)
[2020-10-22] MEDS: POLYETHYLENE GLYCOL 17 GM PACKET PO SCH (08:48)
[2020-10-22] MEDS: CARVEDILOL 3.125 MG TABLET PO SCH ×2 (08:48→20:04)
[2020-10-22 12:19] VITALS: BP 115/71
[2020-10-22 19:14] VITALS: BP 103/65
[2020-10-23 00:33] VITALS: BP 110/69
[2020-10-23 05:51] LABS: BASOPHILS % (AUTO) 1 % (0-1); EOSINOPHILS % (AUTO) 3 % (1-7); LYMPHOCYTES % (AUTO) 23 % (22-44); MEAN CORPUSCULAR HGB CONC 32.5 g/dL (32.4-35.8); MEAN PLATELET VOLUME 8.6 fL (7.4-10.4); MONOCYTES % (AUTO) 11 % (2-9); NEUTROPHILS % (AUTO) 62 % (42-75); PLATELET COUNT 251 x10^3/uL (130-400); RED BLOOD COUNT 4.37 x10^6/uL (3.82-5.3); RED CELL DISTRIBUTION WIDTH 17.1 % (9.6-15.2)
[2020-10-23 05:56] LABS: CHLORIDE 105 mmol/L (98-107)
[2020-10-23 06:12] LABS: MD NO
[2020-10-23 06:16] LABS: ALANINE AMINOTRANSFERASE 13 U/L (12-78); ALBUMIN 2.9 g/dL (3.4-5.0); ALKALINE PHOSPHATASE 107 U/L (45-117); ANION GAP 7 mmol/L (5-15); BILIRUBIN,TOTAL 0.2 mg/dL (0.2-1.0); CALCIUM 8.9 mg/dL (8.5-10.1); CREATININE 0.45 mg/dL (0.55-1.02)
[2020-10-23 07:39] VITALS: BP 121/73
[2020-10-23] MEDS: MULTIVITAMINS WITH IRON TABLET PO SCH (08:09)
[2020-10-23] MEDS: POLYETHYLENE GLYCOL 17 GM PACKET PO SCH (08:09)
[2020-10-23] MEDS: HEPARIN 5,000 UNITS/ML, 1ML SQ SCH ×2 (08:09→19:56)
[2020-10-23] MEDS: CARVEDILOL 3.125 MG TABLET PO SCH ×2 (08:09→19:56)
[2020-10-23 13:51] VITALS: BP 111/71
[2020-10-23 19:48] VITALS: BP 109/66
[2020-10-24 00:46] VITALS: BP 116/71
[2020-10-24 07:15] VITALS: BP 112/69
[2020-10-24] MEDS: CARVEDILOL 3.125 MG TABLET PO SCH ×2 (08:00→22:07)
[2020-10-24] MEDS: HEPARIN 5,000 UNITS/ML, 1ML SQ SCH ×2 (08:00→22:06)
[2020-10-24] MEDS: MULTIVITAMINS WITH IRON TABLET PO SCH (08:00)
[2020-10-24] MEDS: POLYETHYLENE GLYCOL 17 GM PACKET PO SCH (08:00)
[2020-10-24 12:56] VITALS: BP 111/70
[2020-10-24 19:59] VITALS: BP 114/70
[2020-10-25 01:00] VITALS: BP 149/79
[2020-10-25 07:24] VITALS: BP 130/81
[2020-10-25] MEDS: MULTIVITAMINS WITH IRON TABLET PO SCH (10:01)
[2020-10-25] MEDS: CARVEDILOL 3.125 MG TABLET PO SCH ×2 (10:01→21:55)
[2020-10-25] MEDS: POLYETHYLENE GLYCOL 17 GM PACKET PO SCH (10:01)
[2020-10-25] MEDS: HEPARIN 5,000 UNITS/ML, 1ML SQ SCH ×2 (10:02→21:55)
[2020-10-25 13:10] VITALS: BP 113/71
[2020-10-25 19:34] VITALS: BP 112/68
[2020-10-26 02:29] VITALS: BP 116/71
[2020-10-26 08:34] VITALS: BP 103/65
[2020-10-26] MEDS: POLYETHYLENE GLYCOL 17 GM PACKET PO SCH (08:48)
[2020-10-26] MEDS: MULTIVITAMINS WITH IRON TABLET PO SCH (08:48)
[2020-10-26] MEDS: CARVEDILOL 3.125 MG TABLET PO SCH (08:49)
[2020-10-26] MEDS: HEPARIN 5,000 UNITS/ML, 1ML SQ SCH ×2 (08:49→21:28)
[2020-10-26 14:24] VITALS: BP 163/82
--- NOTE | 2020-10-26 16:25 | NUR ---
RN's not updating Green nursing activity sheet. It was not completed all last week. Updated green nursing activity sheet: up to chair for meals amb with FWW in hallways amb to toilet with FWW Addendum: 10/26/20 at 1639 by Subha West PT Amended: Links added.
[2020-10-26] MEDS: CARVEDILOL 6.25 MG TABLET PO SCH (18:12)
[2020-10-26 18:57] VITALS: BP 117/69
[2020-10-27 00:38] VITALS: BP 109/68
[2020-10-27] MEDS: CARVEDILOL 6.25 MG TABLET PO SCH ×2 (05:28→17:57)
[2020-10-27 07:01] VITALS: BP 135/78
[2020-10-27] MEDS: POLYETHYLENE GLYCOL 17 GM PACKET PO SCH (09:00)
[2020-10-27] MEDS: HEPARIN 5,000 UNITS/ML, 1ML SQ SCH ×2 (10:17→21:10)
[2020-10-27] MEDS: MULTIVITAMINS WITH IRON TABLET PO SCH (10:17)
[2020-10-27 12:53] VITALS: BP 113/74
[2020-10-27 19:48] VITALS: BP 119/74
[2020-10-28 00:33] VITALS: BP 113/74
[2020-10-28 05:06] VITALS: BP 145/74
[2020-10-28] MEDS: CARVEDILOL 6.25 MG TABLET PO SCH (05:07)
[2020-10-28 07:02] VITALS: BP 126/73
[2020-10-28] MEDS: POLYETHYLENE GLYCOL 17 GM PACKET PO SCH (09:00)
[2020-10-28] MEDS: HEPARIN 5,000 UNITS/ML, 1ML SQ SCH (09:01)
[2020-10-28] MEDS: MULTIVITAMINS WITH IRON TABLET PO SCH (09:01)
[2020-10-28] MEDS ORDERED: CARV6.2512 PO (10:48)
[2020-10-28 13:00] VITALS: BP 123/73
== END 2020-10-28 17:00 | disposition home or self-care (01) | DRG 853 ==
LOC: ED 11:48 → 3N 13:35
PROVIDERS: ADMIT Hospitalist; ATTEND Hospitalist
PROC: 02HV33Z Insertion of Infusion Device into Superior Vena Cava, Percutaneous Approach (ICD-10-PCS; 2020-09-16)
PROC: B548ZZA Ultrasonography of Superior Vena Cava, Guidance (ICD-10-PCS; 2020-09-16)
PROC: 0T9B70Z Drainage of Bladder with Drainage Device, Via Natural or Artificial Opening (ICD-10-PCS; 2020-09-16)
PROC: 30233N1 Transfusion of Nonautologous Red Blood Cells into Peripheral Vein, Percutaneous Approach (ICD-10-PCS; 2020-09-18)
PROC: 0W9H3ZX Drainage of Retroperitoneum, Percutaneous Approach, Diagnostic (ICD-10-PCS; principal; 2020-10-06)
DX: A41.9 Sepsis, unspecified organism (principal); E43 Unspecified severe protein-calorie malnutrition; L03.115 Cellulitis of right lower limb; E87.1 Hypo-osmolality and hyponatremia; I50.30 Unspecified diastolic (congestive) heart failure; M62.82 Rhabdomyolysis; N17.9 Acute kidney failure, unspecified; L03.116 Cellulitis of left lower limb; L97.929 Non-pressure chronic ulcer of unspecified part of left lower leg with unspecified severity; L97.919 Non-pressure chronic ulcer of unspecified part of right lower leg with unspecified severity; D68.61 Antiphospholipid syndrome; B85.2 Pediculosis, unspecified; B86 Scabies; B87.9 Myiasis, unspecified; D50.9 Iron deficiency anemia, unspecified; D63.8 Anemia in other chronic diseases classified elsewhere; E83.51 Hypocalcemia; I11.0 Hypertensive heart disease with heart failure; I27.20 Pulmonary hypertension, unspecified; I83.019 Varicose veins of right lower extremity with ulcer of unspecified site; I83.029 Varicose veins of left lower extremity with ulcer of unspecified site; I87.8 Other specified disorders of veins; K59.00 Constipation, unspecified; Z59.0 Homelessness; Z78.9 Other specified health status; Z91.19 Patient's noncompliance with other medical treatment and regimen; Z20.822 Contact with and (suspected) exposure to COVID-19; M71.169 Other infective bursitis, unspecified knee; M85.80 Other specified disorders of bone density and structure, unspecified site; Z68.20 Body mass index [BMI] 20.0-20.9, adult; E11.9 Type 2 diabetes mellitus without complications; L89.329 Pressure ulcer of left buttock, unspecified stage; K66.8 Other specified disorders of peritoneum
CPT/HCPCS: 36415; 73590; 73610; 73630; 74018; 85610; 85613; 85670; 85730; 86146; 86147; 96374; 99285; J3490; 36573; 49180; 71045; 74177; 76856; 76942; 80048; 80053; 80202; 81001; 81240; 82040; 82272; 82330; 82378; 82550; 83036; 83540; 83550; 83605; 83735; 84443; 85025; 85300; 85301; 85302; 85303; 85305; 85306; 85598; 85651; 85732; 86038; 86140; 86301; 86304; 86611; 86638; 86850; 86900; 86923; 87040; 87070; 87075; 87077; 87086; 87103; 87186; 87205; 87635; 88305; 93306; 93970; 99156; 99157; G0378; J0295; J1644; J1756; J2250; J2543; J3010; J3370; Q9967; C1751; J2060; J2310; J7030; J7050; P9016

== ENCOUNTER 2020-11-23 09:14 | Emergency (ER) | payer SELFPAY ==
[~2020-11-23] VITALS: Ht 167.6 cm; Wt 62.0 kg
[~2020-11-23 09:14] MED LIST changes: +CARV6.2512 PO
[2020-11-23 09:59] LABS: BASOPHILS % (AUTO) 1 % (0-1); EOSINOPHILS % (AUTO) 3 % (1-7); LYMPHOCYTES % (AUTO) 17 % (22-44); MEAN CORPUSCULAR HEMOGLOBIN 25.7 pg (27.0-34.8); MEAN CORPUSCULAR HGB CONC 32.6 g/dL (32.4-35.8); MEAN PLATELET VOLUME 8.2 fL (7.4-10.4); MONOCYTES % (AUTO) 9 % (2-9); NEUTROPHILS % (AUTO) 71 % (42-75); PLATELET COUNT 237 x10^3/uL (130-400); RED BLOOD COUNT 4.48 x10^6/uL (3.82-5.3); RED CELL DISTRIBUTION WIDTH 17.3 % (9.6-15.2)
[2020-11-23 10:00] LABS: ANION GAP 7 mmol/L (5-15); CALCIUM 8.5 mg/dL (8.5-10.1); CHLORIDE 103 mmol/L (98-107); CREATININE 0.48 mg/dL (0.55-1.02)
--- NOTE | 2020-11-23 10:01 | NUR ---
OSCAR RAMIREZ. EMS STATES PT WAS IN FRONT OF COURT HOUSE FOR THE LAST 27 DAYS. REPORTS RIGHT LEG INFECTION AND LEFT SLIGHTLY SEVERE PAIN. REPORTS PT HASN'T REMOVED SOCKS OR BATHED IN THE LAST 27 DAYS. PT HAS BILATERAL PEDAL PULSE AND IS PAINFUL TO PALPATION. PT STATES IS UNABLE TO WALK UNLESS HAS A WALKER THE LAST 27 DAYS. PT REPORTS NO OTHER ISSUES.
--- NOTE | 2020-11-23 10:49 | NUR ---
PT UP TO SHOWER CLEAN LEGS WITH TECH.
[2020-11-23 11:48] VITALS: BP 168/87
--- NOTE | 2020-11-23 11:49 | NUR ---
PT SHOWERED GIVEN NEW SOCKS AND BANDAGED AND INSTRUCTED TO COME BACK TOMORROW FOR RECHECK WITH WOUNDS. Patient/Caregiver given discharge instructions and they have confirmed that they understand the instructions. Patient ambulatory WITH WALKER.
== END 2020-11-23 12:16 | disposition home or self-care (01) ==
LOC: ED 10:10
DX: L03.116 Cellulitis of left lower limb (principal); L03.115 Cellulitis of right lower limb; I10 Essential (primary) hypertension
CPT/HCPCS: 36415; 80048; 82040; 85025; 99283

== ENCOUNTER 2020-12-11 07:38 | Emergency (ER) | payer SELFPAY ==
[~2020-12-11] VITALS: Ht 170.2 cm; Wt 70.0 kg
[2020-12-11] MEDS ORDERED: SODIUM CHLORIDE 0.9% 1,000 ML IV ONE (08:00)
[2020-12-11] MEDS ORDERED: SODIUM CHLORIDE FLUSH 10ML SYR IVF ONE (08:00)
--- NOTE | 2020-12-11 08:30 | NUR ---
Late entry summary note due to pt care: This RN to bedside at 0830 to clean pt from saturated diaper full of feces and urine. This RN provided full linen change and straight cath'd pt. Pt tolderated well. Connected to all monitors. Call light in reach. All needs met.
[2020-12-11 08:40] LABS: BASOPHILS % (AUTO) 1 % (0-1); EOSINOPHILS % (AUTO) 3 % (1-7); LYMPHOCYTES % (AUTO) 19 % (22-44); MEAN CORPUSCULAR HEMOGLOBIN 25.5 pg (27.0-34.8); MEAN CORPUSCULAR HGB CONC 32.6 g/dL (32.4-35.8); MEAN PLATELET VOLUME 8.2 fL (7.4-10.4); MONOCYTES % (AUTO) 6 % (2-9); NEUTROPHILS % (AUTO) 72 % (42-75); PLATELET COUNT 310 x10^3/uL (130-400); RED BLOOD COUNT 5.26 x10^6/uL (3.82-5.3); RED CELL DISTRIBUTION WIDTH 18.1 % (9.6-15.2)
[2020-12-11 08:49] LABS: ALANINE AMINOTRANSFERASE 15 U/L (12-78); ALBUMIN 3.3 g/dL (3.4-5.0); ANION GAP 4 mmol/L (5-15); CALCIUM 9.5 mg/dL (8.5-10.1); CHLORIDE 107 mmol/L (98-107); CREATININE 0.61 mg/dL (0.55-1.02)
[2020-12-11 08:51] LABS: ALKALINE PHOSPHATASE 134 U/L (45-117); BILIRUBIN,TOTAL 0.3 mg/dL (0.2-1.0); TOTAL PROTEIN 7.9 g/dL (6.4-8.2)
--- NOTE | 2020-12-11 09:14 | NUR ---
Report from SUNDAY Bedoya. This RN to assume full care.
[2020-12-11 09:33] LABS: MICROSCOPIC INDICATED
[2020-12-11] MEDS ORDERED: CEFDINIR 300 MG CAPSULE ONE (09:53)
[2020-12-11] MEDS ORDERED: CEFTRIAXONE 1,000 MG in DEXTROSE 5% 50 ML IVPB ONE (10:00)
[2020-12-11] MEDS ORDERED: CEFDINIR 300 MG CAPSULE PO ONE (10:00)
[2020-12-11] MEDS ORDERED: NEOSPORIN OINT. PKT 1 PACKET ONE (10:20)
[2020-12-11 11:55] VITALS: BP 146/90
== END 2020-12-11 11:57 | disposition home or self-care (01) ==
LOC: ED 08:13
DX: R53.1 Weakness (principal); N30.00 Acute cystitis without hematuria; L03.116 Cellulitis of left lower limb; R06.89 Other abnormalities of breathing; R94.31 Abnormal electrocardiogram [ECG] [EKG]; I10 Essential (primary) hypertension
CPT/HCPCS: 36415; 71045; 80053; 81001; 85025; 87077; 87086; 87186; 93005; 93970; 99285

== ENCOUNTER 2021-01-13 10:09 | Inpatient (IN) | payer OTHER ==
[~2021-01-13] VITALS: Ht 167.6 cm; Wt 74.8 kg
[2021-01-13] MEDS ORDERED: SODIUM CHLORIDE FLUSH 10ML SYR IVF ONE (10:30)
[2021-01-13] MEDS ORDERED: VANCOMYCIN PER PHARMACY MC ONE (10:30)
[2021-01-13] MEDS ORDERED: PIPERACILLIN/TAZO 3.375 GM in DEXTROSE 5% 50 ML IVPB ONE (10:30)
--- NOTE | 2021-01-13 10:35 | NUR ---
20min cleaning up pt buttocks/periarea and BLE wounds. PCXR present at this time. MD in for exam while pt bein cleaned. Large brown, soft, formed stool found in buttocks with 2 incontinence briefs in use at a time on arrival. Stool in vaginal opening cleaned out, clean chucks pad under pt, wound cleanser onto BLE wounds applied, and pt left without underwear/pants on.
[2021-01-13] MEDS ORDERED: VANCOMYCIN 1,900 MG in SODIUM CHLORIDE 0.9% 250 ML IV ONE (11:00)
[2021-01-13 11:05] LABS: BASOPHILS % (AUTO) 1 % (0-1); EOSINOPHILS % (AUTO) 3 % (1-7); LYMPHOCYTES % (AUTO) 19 % (22-44); MEAN CORPUSCULAR HEMOGLOBIN 25.6 pg (27.0-34.8); MEAN PLATELET VOLUME 8.1 fL (7.4-10.4); MONOCYTES % (AUTO) 6 % (2-9); NEUTROPHILS % (AUTO) 72 % (42-75); PLATELET COUNT 274 x10^3/uL (130-400); RED BLOOD COUNT 5.05 x10^6/uL (3.82-5.3); RED CELL DISTRIBUTION WIDTH 18.3 % (9.6-15.2)
[2021-01-13 11:16] LABS: ALANINE AMINOTRANSFERASE 13 U/L (12-78); ALBUMIN 3.4 g/dL (3.4-5.0); ANION GAP 7 mmol/L (5-15); CALCIUM 8.2 mg/dL (8.5-10.1); CHLORIDE 102 mmol/L (98-107)
[2021-01-13 11:19] LABS: ALKALINE PHOSPHATASE 140 U/L (45-117); BILIRUBIN,TOTAL 0.3 mg/dL (0.2-1.0); CREATININE 0.65 mg/dL (0.55-1.02); TOTAL PROTEIN 8.1 g/dL (6.4-8.2)
--- NOTE | 2021-01-13 11:35 | NUR ---
IV started and IV Abx to be started now.
[2021-01-13] MEDS ORDERED: SODIUM CHLORIDE FLUSH 10ML SYR IVF PRN (12:00)
--- NOTE | 2021-01-13 13:15 | NUR ---
Pt unable to use call light to notify RN of need for bathroom. Pt cleaned of large amount of urine with full linen change completed. Periarea red with redness/excoriation noted to R buttock area. All areas of redness still blanching at this time.
--- NOTE | 2021-01-13 13:49 | NUR ---
Report given to SUNDAY Luna for mealbreak and care transferred.
--- NOTE | 2021-01-13 13:50 | NUR ---
ERP MADE AWARE OF ELEVATED LACTIC ACID (2.8) IN SETTING OF SIG LOWER EXTREMITY INFECTION. WITH FOCUS ON IVF (BLOOD CULTURES/ABX ALREADY COMPLETED)
--- NOTE | 2021-01-13 14:12 | NUR ---
ATTEMPTED TO CALL REPORT. INPATIENT RN UNAVAILABLE. WILL RE-ATTEMPT SHORTLY
--- NOTE | 2021-01-13 14:25 | NUR ---
Report received that pt report called to floor and pt ready to transfer. Care reassumed until pt leaves dept.
[2021-01-13 15:00] VITALS: BP 168/91
[2021-01-13 15:02] VITALS: BP 149/92
[2021-01-13] MEDS ORDERED: MELATONIN 5 MG TABLET PO PRN (19:30)
[2021-01-13] MEDS ORDERED: DOCUSATE 100 MG CAPSULE PO PRN (19:30)
[2021-01-13] MEDS ORDERED: BISACODYL 10 MG SUPP PR PRN (19:30)
[2021-01-13] MEDS ORDERED: POLYETHYLENE GLYCOL 17 GM PACKET PO PRN (19:30)
[2021-01-13] MEDS ORDERED: OXYcodone IR 5MG TABLET PO PRN (19:30)
[2021-01-13] MEDS ORDERED: ONDANSETRON 2MG/ML, 2ML IVPush PRN (19:30)
[2021-01-13] MEDS ORDERED: ONDANSETRON ODT 4 MG PO PRN (19:30)
[2021-01-13] MEDS ORDERED: ACETAMINOPHEN 325 MG TABLET PO PRN (19:30)
[2021-01-13] MEDS ORDERED: VANCOMYCIN PER PHARMACY MC PRN (19:30)
[2021-01-13] MEDS ORDERED: morphine SULFATE 10 MG/ML, 1ML IVPush PRN (20:04)
[2021-01-13] MEDS ORDERED: PHARMACOKINETIC MONITORING MC PRN (20:30)
[2021-01-13 20:45] VITALS: BP 166/85
[2021-01-13] MEDS ORDERED: POTASSIUM CHLORIDE 20 MEQ TAB.ER.PRT PO ONE (21:00)
[2021-01-13] MEDS: ENOXAPARIN 40 MG/0.4 ML SQ SCH (21:08)
[2021-01-13] MEDS: AMPICILLIN/SULBACTAM 3 GM in SODIUM CHLORIDE 0.9% 100 ML IV SCH (21:08)
[2021-01-13] MEDS: FAMOTIDINE 20 MG TABLET PO SCH (21:09)
[2021-01-13] MEDS: LACTATED RINGERS 1,000 ML IV SCH (22:31)
[2021-01-13] MEDS: VANCOMYCIN 1,200 MG in SODIUM CHLORIDE 0.9% 250 ML IV SCH (22:35)
[2021-01-14 01:51] VITALS: BP 153/83
[2021-01-14] MEDS: AMPICILLIN/SULBACTAM 3 GM in SODIUM CHLORIDE 0.9% 100 ML IV SCH ×4 (02:51→21:09)
[2021-01-14 06:50] LABS: BASOPHILS % (AUTO) 1 % (0-1); EOSINOPHILS % (AUTO) 3 % (1-7); LYMPHOCYTES % (AUTO) 12 % (22-44); MEAN CORPUSCULAR HEMOGLOBIN 25.8 pg (27.0-34.8); MEAN CORPUSCULAR HGB CONC 33.5 g/dL (32.4-35.8); MEAN PLATELET VOLUME 8.2 fL (7.4-10.4); MONOCYTES % (AUTO) 9 % (2-9); NEUTROPHILS % (AUTO) 76 % (42-75); PLATELET COUNT 216 x10^3/uL (130-400); RED CELL DISTRIBUTION WIDTH 18.5 % (9.6-15.2)
[2021-01-14 06:55] LABS: HCT (SEDRATE) 32.1 % (34.6-47.8)
[2021-01-14 07:02] LABS: CHLORIDE 109 mmol/L (98-107)
[2021-01-14 07:23] LABS: ALANINE AMINOTRANSFERASE 10 U/L (12-78); ALBUMIN 2.7 g/dL (3.4-5.0); ALKALINE PHOSPHATASE 115 U/L (45-117); ANION GAP 5 mmol/L (5-15); BILIRUBIN,TOTAL 0.4 mg/dL (0.2-1.0); CHOL/HDL RATIO 6.4; CHOLESTEROL, TOTAL 186 mg/dL (140-239); CREATININE 0.69 mg/dL (0.55-1.02); HDL CHOL % 16 % (28-40); HDL CHOLESTEROL (DIRECT) 29 mg/dL (40-60); LDL CHOLESTEROL,CALCULATED 133 mg/dL (54-169); LDL/HDL RATIO 4.6 (0.5-3.0); TOTAL PROTEIN 6.4 g/dL (6.4-8.2); TRIGLYCERIDES 118 mg/dL (50-200); VLDL CHOLESTEROL 24 mg/dL (0-25)
[2021-01-14 07:45] VITALS: BP 159/90
[2021-01-14] MEDS: FAMOTIDINE 20 MG TABLET PO SCH ×2 (09:11→21:09)
[2021-01-14] MEDS: VANCOMYCIN 1,200 MG in SODIUM CHLORIDE 0.9% 250 ML IV SCH ×2 (11:02→22:12)
[2021-01-14 14:47] VITALS: BP 152/75
[2021-01-14 16:43] LABS: MICROSCOPIC INDICATED
[2021-01-14 18:57] VITALS: BP 153/84
[2021-01-14] MEDS: ENOXAPARIN 40 MG/0.4 ML SQ SCH (21:09)
[2021-01-14] MEDS: LACTATED RINGERS 1,000 ML IV SCH (21:09)
[2021-01-15 01:40] VITALS: BP 172/91
[2021-01-15] MEDS: AMPICILLIN/SULBACTAM 3 GM in SODIUM CHLORIDE 0.9% 100 ML IV SCH ×4 (02:18→20:54)
[2021-01-15 05:38] LABS: BASOPHILS % (AUTO) 1 % (0-1); EOSINOPHILS % (AUTO) 4 % (1-7); LYMPHOCYTES % (AUTO) 15 % (22-44); MEAN CORPUSCULAR HEMOGLOBIN 25.8 pg (27.0-34.8); MEAN CORPUSCULAR HGB CONC 33.6 g/dL (32.4-35.8); MEAN PLATELET VOLUME 8.3 fL (7.4-10.4); MONOCYTES % (AUTO) 9 % (2-9); NEUTROPHILS % (AUTO) 72 % (42-75); PLATELET COUNT 217 x10^3/uL (130-400); RED BLOOD COUNT 4.36 x10^6/uL (3.82-5.3); RED CELL DISTRIBUTION WIDTH 18.5 % (9.6-15.2)
[2021-01-15 05:46] LABS: ANION GAP 7 mmol/L (5-15); CALCIUM 8.2 mg/dL (8.5-10.1); CHLORIDE 107 mmol/L (98-107); CREATININE 0.54 mg/dL (0.55-1.02)
[2021-01-15 07:54] VITALS: BP 167/98
[2021-01-15] MEDS: FAMOTIDINE 20 MG TABLET PO SCH ×2 (08:32→20:54)
[2021-01-15] MEDS: AMLODIPINE 2.5 MG TABLET PO SCH (08:32)
[2021-01-15 13:25] VITALS: BP 192/97
[2021-01-15] MEDS: hydrALAzine 20 MG/ML, 1ML IVPush PRN ×2 (14:19→18:34)
[2021-01-15] MEDS: VANCOMYCIN 1,200 MG in SODIUM CHLORIDE 0.9% 250 ML IV SCH ×2 (14:19→22:49)
[2021-01-15 17:13] VITALS: BP 187/91
[2021-01-15 19:08] VITALS: BP 127/70
[2021-01-15] MEDS: ENOXAPARIN 40 MG/0.4 ML SQ SCH (20:54)
[2021-01-16 00:15] VITALS: BP 118/79
[2021-01-16] MEDS: AMPICILLIN/SULBACTAM 3 GM in SODIUM CHLORIDE 0.9% 100 ML IV SCH ×4 (02:37→20:34)
[2021-01-16 07:12] VITALS: BP 146/85
[2021-01-16] MEDS: AMLODIPINE 2.5 MG TABLET PO SCH (09:21)
[2021-01-16] MEDS: FAMOTIDINE 20 MG TABLET PO SCH ×2 (09:21→20:33)
[2021-01-16] MEDS: VANCOMYCIN 1,200 MG in SODIUM CHLORIDE 0.9% 250 ML IV SCH ×2 (11:29→23:25)
[2021-01-16 13:23] VITALS: BP 158/84
[2021-01-16 18:49] VITALS: BP 133/89
[2021-01-16] MEDS: ENOXAPARIN 40 MG/0.4 ML SQ SCH (20:33)
[2021-01-17 01:46] VITALS: BP 143/77
[2021-01-17] MEDS: AMPICILLIN/SULBACTAM 3 GM in SODIUM CHLORIDE 0.9% 100 ML IV SCH ×4 (03:11→19:45)
[2021-01-17 06:47] VITALS: BP 153/87
[2021-01-17] MEDS: FAMOTIDINE 20 MG TABLET PO SCH ×2 (09:14→19:45)
[2021-01-17] MEDS: AMLODIPINE 2.5 MG TABLET PO SCH (09:14)
[2021-01-17 14:19] VITALS: BP 149/92
[2021-01-17 18:41] VITALS: BP 150/90
[2021-01-17] MEDS: ENOXAPARIN 40 MG/0.4 ML SQ SCH (19:45)
[2021-01-18 01:37] VITALS: BP 148/83
[2021-01-18] MEDS: AMPICILLIN/SULBACTAM 3 GM in SODIUM CHLORIDE 0.9% 100 ML IV SCH ×4 (03:06→22:20)
[2021-01-18 04:46] LABS: BASOPHILS % (AUTO) 0 % (0-1); EOSINOPHILS % (AUTO) 4 % (1-7); LYMPHOCYTES % (AUTO) 17 % (22-44); MEAN CORPUSCULAR HEMOGLOBIN 25.9 pg (27.0-34.8); MEAN CORPUSCULAR HGB CONC 33.4 g/dL (32.4-35.8); MEAN PLATELET VOLUME 8.7 fL (7.4-10.4); MONOCYTES % (AUTO) 8 % (2-9); NEUTROPHILS % (AUTO) 70 % (42-75); PLATELET COUNT 204 x10^3/uL (130-400); RED BLOOD COUNT 4.83 x10^6/uL (3.82-5.3); RED CELL DISTRIBUTION WIDTH 18.3 % (9.6-15.2)
[2021-01-18 04:49] LABS: ANION GAP 6 mmol/L (5-15); CALCIUM 8.9 mg/dL (8.5-10.1); CHLORIDE 109 mmol/L (98-107); CREATININE 0.51 mg/dL (0.55-1.02)
[2021-01-18 06:57] VITALS: BP 128/81
[2021-01-18] MEDS: AMLODIPINE 2.5 MG TABLET PO SCH (09:41)
[2021-01-18] MEDS: FAMOTIDINE 20 MG TABLET PO SCH ×2 (09:41→20:59)
[2021-01-18 12:02] VITALS: BP 143/74
[2021-01-18 20:55] VITALS: BP 141/82
[2021-01-18] MEDS: ENOXAPARIN 40 MG/0.4 ML SQ SCH (20:59)
[2021-01-19 00:16] VITALS: BP 150/89
[2021-01-19] MEDS: AMPICILLIN/SULBACTAM 3 GM in SODIUM CHLORIDE 0.9% 100 ML IV SCH ×5 (03:49→23:56)
[2021-01-19 06:32] VITALS: BP 140/85
[2021-01-19] MEDS: AMLODIPINE 2.5 MG TABLET PO SCH (09:35)
[2021-01-19] MEDS: FAMOTIDINE 20 MG TABLET PO SCH ×2 (09:35→20:51)
[2021-01-19 12:09] VITALS: BP 140/92
[2021-01-19 19:16] VITALS: BP 142/87
[2021-01-19] MEDS: ENOXAPARIN 40 MG/0.4 ML SQ SCH (20:52)
[2021-01-20 00:03] VITALS: BP 146/87
[2021-01-20] MEDS: AMPICILLIN/SULBACTAM 3 GM in SODIUM CHLORIDE 0.9% 100 ML IV SCH ×4 (05:59→23:56)
[2021-01-20 06:18] VITALS: BP 147/93
[2021-01-20 09:33] LABS: BASOPHILS % (AUTO) 1 % (0-1); EOSINOPHILS % (AUTO) 4 % (1-7); LYMPHOCYTES % (AUTO) 21 % (22-44); MEAN CORPUSCULAR HEMOGLOBIN 25.8 pg (27.0-34.8); MEAN CORPUSCULAR HGB CONC 32.9 g/dL (32.4-35.8); MEAN PLATELET VOLUME 7.9 fL (7.4-10.4); MONOCYTES % (AUTO) 8 % (2-9); NEUTROPHILS % (AUTO) 66 % (42-75); PLATELET COUNT 235 x10^3/uL (130-400); RED CELL DISTRIBUTION WIDTH 18.8 % (9.6-15.2)
[2021-01-20 09:42] LABS: CALCIUM 9.1 mg/dL (8.5-10.1)
[2021-01-20 09:44] LABS: CREATININE 0.55 mg/dL (0.55-1.02)
[2021-01-20 09:58] LABS: ANION GAP 5 mmol/L (5-15); CHLORIDE 104 mmol/L (98-107)
[2021-01-20] MEDS: FAMOTIDINE 20 MG TABLET PO SCH ×2 (10:29→21:10)
[2021-01-20] MEDS: AMLODIPINE 2.5 MG TABLET PO SCH (10:29)
[2021-01-20 12:49] VITALS: BP 176/94
[2021-01-20 19:38] VITALS: BP 139/81
[2021-01-20] MEDS: ENOXAPARIN 40 MG/0.4 ML SQ SCH (21:10)
[2021-01-21 01:05] VITALS: BP 127/79
[2021-01-21] MEDS: AMPICILLIN/SULBACTAM 3 GM in SODIUM CHLORIDE 0.9% 100 ML IV SCH ×3 (06:01→18:01)
[2021-01-21 07:30] VITALS: BP 133/80
[2021-01-21] MEDS: AMLODIPINE 2.5 MG TABLET PO SCH (09:25)
[2021-01-21] MEDS: FAMOTIDINE 20 MG TABLET PO SCH ×2 (09:26→20:06)
[2021-01-21 12:24] VITALS: BP 133/74
[2021-01-21] MEDS: ENOXAPARIN 40 MG/0.4 ML SQ SCH (20:06)
[2021-01-21 20:20] VITALS: BP 136/77
[2021-01-22] MEDS: AMPICILLIN/SULBACTAM 3 GM in SODIUM CHLORIDE 0.9% 100 ML IV SCH ×4 (00:05→18:25)
[2021-01-22 01:01] VITALS: BP 157/75
[2021-01-22 06:38] VITALS: BP 138/80
[2021-01-22] MEDS: AMLODIPINE 2.5 MG TABLET PO SCH (08:17)
[2021-01-22] MEDS: FAMOTIDINE 20 MG TABLET PO SCH ×2 (08:18→19:53)
[2021-01-22 12:02] VITALS: BP 163/84
[2021-01-22 18:47] VITALS: BP 148/78
[2021-01-22] MEDS: ENOXAPARIN 40 MG/0.4 ML SQ SCH (19:55)
[2021-01-23] MEDS: AMPICILLIN/SULBACTAM 3 GM in SODIUM CHLORIDE 0.9% 100 ML IV SCH ×4 (00:03→17:54)
[2021-01-23 00:35] VITALS: BP 132/82
[2021-01-23 08:05] VITALS: BP 165/82
[2021-01-23] MEDS: AMLODIPINE 2.5 MG TABLET PO SCH (09:03)
[2021-01-23] MEDS: FAMOTIDINE 20 MG TABLET PO SCH (09:03)
[2021-01-23] MEDS ORDERED: AMLODIPINE 2.5 MG TABLET PO ONE (13:00)
[2021-01-23 14:08] VITALS: BP 185/97
[2021-01-23 15:00] VITALS: BP 158/65
[2021-01-23] MEDS ORDERED: AMLO-150 PO (15:13)
[2021-01-23] MEDS ORDERED: AMOX1TAB64 PO (15:13)
[2021-01-23 17:30] VITALS: BP 148/70
[2021-01-24] MEDS ORDERED: AMLODIPINE 5 MG TABLET PO SCH (09:00)
== END 2021-01-23 18:34 | disposition home or self-care (01) | DRG 603 ==
LOC: ED 11:35 → 3N 11:36 → ED 11:36 → 3N 14:50 → ED 14:50
PROVIDERS: ADMIT Internal Medicine; ATTEND Internal Medicine
DX: L03.115 Cellulitis of right lower limb (principal); E87.1 Hypo-osmolality and hyponatremia; E87.2 Acidosis; L97.909 Non-pressure chronic ulcer of unspecified part of unspecified lower leg with unspecified severity; L03.116 Cellulitis of left lower limb; E87.6 Hypokalemia; I35.0 Nonrheumatic aortic (valve) stenosis; S81.802A Unspecified open wound, left lower leg, initial encounter; S81.801A Unspecified open wound, right lower leg, initial encounter; I10 Essential (primary) hypertension; Z59.0 Homelessness; Y93.89 Activity, other specified; Y92.89 Other specified places as the place of occurrence of the external cause; Y99.8 Other external cause status
CPT/HCPCS: 36415; 71045; 80048; 80053; 80061; 80202; 81001; 83036; 83605; 83735; 84100; 84443; 85025; 85651; 86140; 87040; 87070; 87077; 87086; 87186; 87205; 93005; 93306; 93356; 96365; 96368; 96372; G0378; J0295; J1650; J2543; J3370; J0360; J7050; J7120